=== PATIENT | female | born 1970 | race Caucasian/White ===

== ENCOUNTER 2019-06-06 20:20 | Inpatient (IN) | payer OTHER ==
--- NOTE | 2019-06-06 20:30 | PDOC ---
History of Present Illness - General Stated Complaint: LOW SATURATION Time Seen by Provider: 06/06/19 20:30 History Source: Patient Exam Limitations: No Limitations - History of Present Illness Initial Comments: 48 year old female with PMH HIV (not on HAARt, unknown viral load/CD4), COPD, asthma, heroine abuse BIBA to ED from [facility] for hypoxia. Pt was at [facility] for intake for Heroin/ETOH detox, SpO2 was 76%, EMS was called, EMS confirmed 76% SpO2, put on nonrebreather with improvement to 97%. Pt reported productive brown cough x2 days, pleuritic chest pain. Pt denied shortness of breath, weakness, palpitations, fever, vomiting, abdominal pain. Pt has not been compliant with HIV meds, only taking albuterol. Pt is not on home O2. Pt reported she went to Detox for treatment, and did not expect to be sent to the ED. 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 ROS General: denied fever, chills, generalized weakness. HEENT: denied sore throat, rhinorrhea, ear pain. Cardiovascular: denied chest pain, palpitations, syncope, diaphoresis. Respiratory: admitted to cough, sputum production. denied shortness of breath, hemoptysis. Gastrointestinal: denied abdominal pain, nausea, vomiting, diarrhea, constipation, blood in stool. Genitourinary: denied dysuria, increased urinary frequency, hematuria, urinary incontinence, flank pain. Back: denied back pain. Musculoskeletal: denied joint pain, muscle pain, joint swelling. Neurological: denied headache, dizziness, numbness, tingling, weakness. Integumentary: denied rash, laceration, abrasion. Hematologic/Lymphatic: denied bruising or bleeding. PE Constitutional: cachectic. ambulates well without assistance. HEENT: head is normocephalic, atraumatic. EOMI. PERRLA. dry mucous membranes. poor dentition. Neck: supple. Full ROM. Cardiovascular: regular heart rhythm. no murmurs. no pericardial friction rub. Respiratory: clear to auscultation bilaterally. no crackles, rhonchi or wheezing. no stridor. no CONTRERAS. no labored breathing. speaking full sentences. Gastrointestinal: soft, nontender. normal bowel sounds. no rebound, guarding, masses. Extremities: peripheral pulses intact. no lower extremity edema. Neurological: CN 2-12 grossly intact. moves all four extremities. Psych: awake, alert, oriented x3. follows commands. answers questions appropriately. Past History - Past Medical History Allergies/Adverse Reactions: Allergies Allergy/AdvReac Type Severity Reaction Status Date / Time No Known Allergies Allergy Verified 02/12/16 16:04 Home Medications: Ambulatory Orders Darunavir Ethanolate [Prezista -] 800 mg PO DAILY 02/12/16 Emtricitabine/Tenofovir [Truvada] 1 tab PO DAILY 02/12/16 Ritonavir [Norvir -] 100 mg PO DAILY 02/12/16 - Psycho Social/Smoking Cessation Hx Smoking History: Current every day smoker Have you smoked in the past 12 months: Yes Number of Cigarettes Smoked Daily: 40 Cigars Per Day: 0 'Breaking Loose' booklet given: 02/12/16 Hx Alcohol Use: No Drug/Substance Use Hx: Yes Substance Use Type: Heroin Hx Substance Use Treatment: Yes ([facility] IN 2013) ED Treatment Course - LABORATORY CBC & Chemistry Diagram: 06/06/19 21:30 06/06/19 21:30 Medical Decision Making - Medical Decision Making 48 year old female with above PMH sent to ED from [facility] Detox Intake for hypoxia 75%, was placed on nonrebreather by EMS with improvement to 97%. Pt reported 2 days of productive brown cough, pleuritic chest pain. Pt reported no shortness of breath, reported she feels well. She will intermittently remove the nonrebreather and continues to try to get out of bed and walk herself to the bathroom without her oxygen. Pt educated to keep the nonrebreather on. Initial Vital Signs Temp Pulse Resp BP Pulse Ox 98.8 F 102 H 24 H 91/48 L 78 L 06/06/19 21:55 06/06/19 21:55 06/06/19 21:55 06/06/19 21:55 06/06/19 21:55 Afebrile. Tachycardic. Tachypneic. Hypotensive. Hypoxia on room air. Labs ordered: CBC, CMP, Mag, Troponin, PT/PTT/INR, LDH, CD4, blood cultures, UA/ UC/UDS Imaging ordered: CTA chest Medications ordered: normal saline bolus 1000 cc once, tylenol IV EKG performed at 0032: rate 70, regular rhythm, normal axis, normal intervals, flipped T V2, biphasic T V3-V6. -No prior to compare 06/06/19 21:20 Urine Test Results Urine Color Dk yellow 06/06/19 20:55 Urine Appearance Cloudy 06/06/19 20:55 Urine pH 6.0 (5.0-8.0) 06/06/19 20:55 Ur Specific [place] 1.023 (1.010-1.035) 06/06/19 20:55 Urine Protein 1+ (NEGATIVE) H 06/06/19 20:55 Urine Glucose (UA) Negative (NEGATIVE) 06/06/19 20:55 Urine Ketones Trace (NEGATIVE) H 06/06/19 20:55 Urine Blood Negative (NEGATIVE) 06/06/19 20:55 Urine Nitrite Negative (NEGATIVE) 06/06/19 20:55 Urine Bilirubin Negative (NEGATIVE) 06/06/19 20:55 Ur Leukocyte Esterase Negative (NEGATIVE) 06/06/19 20:55 Negative for UTI. 06/06/19 22:53 CBC WBC 38.2 K/mm3 (4.0-10.0) H* 06/06/19 21:30 RBC 3.97 M/mm3 (3.60-5.2) 06/06/19 21:30 Hgb 10.8 GM/dL (10.7-15.3) 06/06/19 21:30 Hct 33.2 % (32.4-45.2) 06/06/19 21:30 MCV 83.8 fl (80-96) 06/06/19 21:30 MCH 27.1 pg (25.7-33.7) 06/06/19 21:30 MCHC 32.4 g/dl (32.0-36.0) 06/06/19 21:30 RDW 17.6 % (11.6-15.6) H 06/06/19 21:30 Plt Count 423 K/MM3 (134-434) D 06/06/19 21:30 MPV 9.5 fl (7.5-11.1) D 06/06/19 21:30 Absolute Neuts (auto) 35.8 K/mm3 (1.5-8.0) H 06/06/19 21:30 Neutrophils % 93.8 % (42.8-82.8) H 06/06/19 21:30 Neutrophils % (Manual) 76.0 % (42.8-82.8) 06/06/19 21:30 Band Neutrophils % 20.0 % 06/06/19 21:30 Lymphocytes % 1.3 % (8-40) L 06/06/19 21:30 Lymphocytes % (Manual) 3.0 % (8-40) L 06/06/19 21:30 Monocytes % 3.9 % (3.8-10.2) 06/06/19 21:30 Monocytes % (Manual) 1 % (3.8-10.2) L 06/06/19 21:30 Eosinophils % 1.0 % (0-4.5) 06/06/19 21:30 Eosinophils % (Manual) 0.0 % (0-4.5) 06/06/19 21:30 Basophils % 0.0 % (0-2.0) 06/06/19 21:30 Basophils % (Manual) 0.0 % (0-2.0) 06/06/19 21:30 Nucleated RBC % 0 % (0-0) 06/06/19 21:30 Hypochromia 1+ 06/06/19 21:30 Platelet Estimate Adequate 06/06/19 21:30 Target Cells 1+ 06/06/19 21:30 Ovalocytes Few 06/06/19 21:30 CMP Sodium 133 mmol/L (136-145) L 06/06/19 21:30 Potassium 5.0 mmol/L (3.5-5.1) 06/06/19 21:30 Chloride 92 mmol/L (98-107) L 06/06/19 21:30 Carbon Dioxide 33 mmol/L (21-32) H 06/06/19 21:30 Anion Gap 8 MMOL/L (8-16) 06/06/19 21:30 BUN 55.0 mg/dL (7-18) H 06/06/19 21:30 Creatinine 1.3 mg/dL (0.55-1.3) 06/06/19 21:30 Est GFR (CKD-EPI)AfAm 55.40 06/06/19 21:30 Est GFR (CKD-EPI)NonAf 47.80 06/06/19 21:30 Random Glucose 86 mg/dL (74-106) 06/06/19 21:30 Lactic Acid 1.7 mmol/L (0.4-2.0) 06/06/19 21:38 Calcium 9.2 mg/dL (8.5-10.1) 06/06/19 21:30 Phosphorus 3.4 mg/dL (2.5-4.9) 06/06/19 21:30 Magnesium 2.5 mg/dL (1.8-2.4) H 06/06/19 21:30 Total Bilirubin 0.3 mg/dL (0.2-1) 06/06/19 21:30 AST 58 U/L (15-37) H 06/06/19 21:30 ALT 24 U/L (13-61) 06/06/19 21:30 Alkaline Phosphatase 163 U/L (45-117) H 06/06/19 21:30 LD Total 348 U/L (84-246) H 06/06/19 21:30 Total Protein 7.9 g/dl (6.4-8.2) 06/06/19 21:30 Albumin 1.9 g/dl (3.4-5.0) L 06/06/19 21:30 Serum , Qual Negative 06/06/19 21:30 INR, PTT INR 1.28 (0.83-1.09) H 06/06/19 21:30 Severe leukocytosis. BUN/Cr >20 Elevated AST - consistent with ETOH abuse. Elevated LDH Pt is high risk for PCP pneumonia. Pharmacy called for dosing of Bactrim, recommended Bactrim IV 200 mg Q6-8 hours. Medications ordered: Bactrim IV 200 mg Q6-8 hours 06/07/19 00:32 CTA report: Referring Physician: PEG GRAY Patient Name: MERVIN ALEJANDRO THIS IS A PRELIMINARY REPORT FROM [facility] DATE OF SERVICE: 2019-06-06 23:33:38 IMAGES: [id number] EXAM: CHEST CTA HISTORY: Hypoxia COMPARISON: None. FINDINGS: There is no PE or dissection. The main pulmonary artery is dilated to 3.5 cm which does suggest pulmonary arterial hypertension. Heart size is normal. The trachea and bronchi are patent. There is no pleural or pericardial effusion. A dense right lower lobe consolidation indicates lobar pneumonia with a small consolidation in the right middle lobe. Mild emphysema is noted with biapical scarring. 11 mm spiculated nodule right lung apex is suspected to represent scarring, but suggest comparison to prior examinations to demonstrate stability. No fractures identified. Incompletely seen hypodensity adjacent to the falciform ligament could represent focal fatty infiltration of liver. The upper abdominal structures are normal. IMPRESSION: Right lower lobe lobar pneumonia with smaller consolidation in the right middle lobe. Mild emphysema with biapical scarring. 11 mm spiculated right nodule suspected to represent scar but suggest comparison to prior examinations. Possible fatty infiltration of the liver next to the falciform ligament, but consider further evaluation with nonemergent MRI. Suspected pulmonary arterial hypertension. One or more of the following dose reduction techniques were used: automated exposure control, adjustment of the mA and/or kV according to patient size, use of iterative reconstructive technique. THIS DOCUMENT HAS BEEN ELECTRONICALLY SIGNED Deshawn Calloway MD 06/07/19 01:39 Pt has hx of being immunocompromised with HAART medication noncompliance suffering from RLL/RML pneumonia resulting in hypoxia at rest, severe leukocytosis, and dehydration. Pt would benefit from inpatient antibiotics, ID consult, pulmonology consult, ICU consult, fluid hydration. Signout given to admitting team. Discharge - Discharge Information Problems reviewed: Yes Clinical Impression/Diagnosis: Pneumonia, HIV (human immunodeficiency virus infection), Noncompliance with medication regimen, Hypoxia, Leukocytosis Condition: Guarded - Admission Yes - Follow up/Referral - Patient Discharge Instructions - Post Discharge Activity
--- NOTE | 2019-06-06 20:37 | PDOC ---
Attending Attestation - Resident Resident Name: EmeliaSaeeda - ED Attending Attestation I have performed the following: I have examined & evaluated the patient, The case was reviewed & discussed with the resident, I agree w/resident's findings & plan - HPI HPI: 06/06/19 23:06 see resident hpi - Physicial Exam PE: 06/06/19 23:06 agree with resident exam - Medical Decision Making 06/06/19 23:06 48-year-old female with history of opiate dependence and retroviral positive status now with fever cough and shortness of breath as well as chest pain Labs notable for a significant leukocytosis LDH is elevated, CD4 count and viral load unknown Plan for CTA of the chest to rule out pulmonary embolism Bactrim IV for possible PCP Zosyn for community-acquired pneumonias Plan for admission to medical service for further evaluation
[2019-06-06] MEDS ORDERED: SODIUM CHLORIDE 1,000 ML IV STA ×2 (20:48→23:40)
[2019-06-06] MEDS ORDERED: ACETAMINOPHEN 1000 MG/100 ML VIAL (NON FORMULARY) IVPB ONE (20:48)
[2019-06-06 21:12] LABS: EPI CELLS 16.1 /HPF (0-5/HPF); HYALINE CASTS 75 /lpf (0-8); URINE APPEARANCE CLOUDY; URINE BACTERIA 44.9 /hpf (NEGATIVE); URINE BILIRUBIN NEGATIVE (NEGATIVE); URINE COLOR DK YELLOW; URINE GLUCOSE (UA) NEGATIVE (NEGATIVE); URINE KETONE TRACE (NEGATIVE); URINE LEUK ESTERASE NEGATIVE (NEGATIVE); URINE NITRITE NEGATIVE (NEGATIVE); URINE PROTEIN 1+ (NEGATIVE); URINE RBC 2 /hpf (0-4); URINE WBC 7 /hpf (0-5)
[2019-06-06 22:00] LABS: VENOUS PC02 67.6 mmHg (38-52); VENOUS PH 7.33 (7.31-7.41)
[2019-06-06 22:01] LABS: HEMATOCRIT 33.2 % (32.4-45.2); HEMOGLOBIN 10.8 GM/dL (10.7-15.3); LYMPH % 1.3 % (8-40); MCH 27.1 pg (25.7-33.7); MCHC 32.4 g/dl (32.0-36.0); MEAN CELL VOLUME 83.8 fl (80-96); MEAN PLT VOLUME 9.5 fl (7.5-11.1); MONO % 3.9 % (3.8-10.2); NEUT % 93.8 % (42.8-82.8); PLATELET COUNT 423 K/MM3 (134-434); RBC 3.97 M/mm3 (3.60-5.2); RDW 17.6 % (11.6-15.6)
[2019-06-06] MEDS ORDERED: ACETAMINOPHEN INJECTION 100 ML IVPB ONE (22:02)
[2019-06-06 22:03] LABS: VENOUS PO2 < 49 mmHg (28-48)
[2019-06-06 22:07] LABS: WHITE BLOOD COUNT 38.2 K/mm3 (4.0-10.0)
[2019-06-06 22:14] LABS: INR 1.28 (0.83-1.09); PROTHROMBIN TIME (PATIENT) 15.2 SEC (9.7-13.0)
[2019-06-06 22:29] LABS: OVALOCYTE FEW; PLATELET ESTIMATE ADEQUATE; TARGET CELLS 1+
[2019-06-06 22:40] LABS: ALBUMIN 1.9 g/dl (3.4-5.0); BILIRUBIN,TOTAL 0.3 mg/dL (0.2-1); CALCIUM 9.2 mg/dL (8.5-10.1); CREATININE 1.3 mg/dL (0.55-1.3); TOT PROT 7.9 g/dl (6.4-8.2)
[2019-06-06 22:51] LABS: MAGNESIUM 2.5 mg/dL (1.8-2.4); PHOSPHOROUS 3.4 mg/dL (2.5-4.9)
[2019-06-06] MEDS ORDERED: SULFAMETHOXAZOLE 80 MG/TRIMETHOPRIM 16 MG/ML VIAL IVPB ONE (23:24)
[2019-06-06] MEDS ORDERED: PIPERACILLIN/TAZOB 4.5 GM 4.5 GM in DEXTROSE 5%-WATER 100 ML IVPB ONE (23:24)
[2019-06-07] MEDS ORDERED: PIPERACILLIN/TAZOB 4.5 GM 4.5 GM/100 ML BAG IVPB ONE (00:41)
[2019-06-07 01:06] LABS: ARTERIAL BLD GAS O2 SATURATION 96.9 % (95-98); ARTERIAL BLOOD GAS BASE EXCESS 4.8 meq/l (-2-2); ARTERIAL BLOOD GAS PCO2 51.9 mmHg (35-45); ARTERIAL BLOOD GAS PO2 99.5 mmHg (80-100); ARTERIAL BLOOD GAS pH 7.38 (7.35-7.45); CARBOXYHEMOGLOBIN 1.5 % (0-2)
[2019-06-07 01:18] LABS: ALLENS TEST POSITIVE
--- NOTE | 2019-06-07 02:14 | PN ---
Teaching Attending Note Name of Resident: Martinez Ignacio ATTENDING PHYSICIAN STATEMENT I saw and evaluated the patient. I reviewed the resident's note and discussed the case with the resident. I agree with the resident's findings and plan as documented. SUBJECTIVE: 48-year-old woman with HIV/AIDS unknown CD4 count or viral load presented with complaints of cough and shortness of breath as well as chest pain. Patient was sent to hospital from [facility]. Patient herself is a very unreliable historian and offers very limited history and is believed to have poor insight about her medical condition. She does however recall that her last ART regimen was Truvada , Prezista, Norvir. States that she has been off her medications for about 1 year because she got tired of taking them OBJECTIVE: Last Vital Signs Temp Pulse Resp BP Pulse Ox 98.8 F 61 20 80/47 L 100 06/06/19 21:55 06/07/19 01:19 06/07/19 01:19 06/07/19 01:19 06/07/19 01:19 GENERAL: Cachectic, awake and alert, nontoxic appearing HEENT: Negative for any oral thrush, no lymphadenopathy appreciated, no sinus tenderness NECK: Supple. Full ROM. No JVD. Carotid pulses 2+ and symmetric, without bruits. No thyromegaly. No lymphadenopathy. CARDIOVASCULAR: Regular rate and rhythm. No murmurs, rubs, or gallops. Distal pulses are 2+ and symmetric. PULMONARY: No evidence of respiratory distress. Lungs clear to auscultation bilaterally. No wheezing, rales or rhonchi. ABDOMINAL: Soft. Non-tender. Non-distended. No rebound or guarding. No organomegaly. Normoactive bowel sounds. MUSCULOSKELETAL Normal range of motion at all joints. No bony deformities or tenderness. No CVA tenderness. EXTREMITIES: No cyanosis. No clubbing. No edema. No calf tenderness. SKIN: Warm and dry. Normal capillary refill. No rashes. No jaundice. PSYCHIATRIC: Cooperative. Good eye contact. Appropriate mood and affect. Abnormal Lab Results 06/06/19 06/06/19 06/06/19 20:55 21:30 21:30 WBC 38.2 H* RDW 17.6 H Absolute Neuts (auto) 35.8 H Neutrophils % 93.8 H Lymphocytes % 1.3 L Lymphocytes % (Manual) 3.0 L Monocytes % (Manual) 1 L PT with INR 15.20 H INR 1.28 H ABG pCO2 at Pt Temp ABG HCO3 ABG Base Excess POC VBG pCO2 POC VBG pO2 VBG HCO3 VBG O2 Sat ([place]) VBG Base Excess Sodium Chloride Carbon Dioxide BUN Magnesium AST Alkaline Phosphatase LD Total Albumin Urine Protein 1+ H Urine Ketones Trace H 06/06/19 06/06/19 06/06/19 21:30 21:30 21:30 WBC RDW Absolute Neuts (auto) Neutrophils % Lymphocytes % Lymphocytes % (Manual) Monocytes % (Manual) PT with INR INR ABG pCO2 at Pt Temp ABG HCO3 ABG Base Excess POC VBG pCO2 67.6 H POC VBG pO2 < 49 H VBG HCO3 35.0 H VBG O2 Sat ([place]) 39.6 L VBG Base Excess 7.6 H Sodium 133 L Chloride 92 L Carbon Dioxide 33 H BUN 55.0 H Magnesium 2.5 H AST 58 H Alkaline Phosphatase 163 H LD Total 348 H Albumin 1.9 L Urine Protein Urine Ketones 06/07/19 00:54 WBC RDW Absolute Neuts (auto) Neutrophils % Lymphocytes % Lymphocytes % (Manual) Monocytes % (Manual) PT with INR INR ABG pCO2 at Pt Temp 51.9 H ABG HCO3 30.1 H ABG Base Excess 4.8 H POC VBG pCO2 POC VBG pO2 VBG HCO3 VBG O2 Sat ([place]) VBG Base Excess Sodium Chloride Carbon Dioxide BUN Magnesium AST Alkaline Phosphatase LD Total Albumin Urine Protein Urine Ketones Imaging studies reviewed ASSESSMENT AND PLAN: 48-year-old woman with HIV/AIDS, immunocompromised with severe sepsis secondary to multifocal Community acquired pneumonia. Hypoxic respiratory failure, severe leukocytosis, should rule out PJP pneumonia as patient was found to be severely hypoxic Telemetry Consider ICU admission as patient is high risk for decompensation Zosyn, vancomycin, azithromycin for suspected bacterial pneumonia Sputum culture Urine Legionella antigen Blood cultures x2 Trend lactate as patient is becoming hypotensive IV Bactrim every 8 hours pending P NATALIO rule out Fungitell Sputum for P NATALIO DFA Pulmonary consult for possible BAL LDH ABG and calculate AA gradient Pulmonary and infectious disease evaluation HIV viral load and CD4 count Obtain patient's medical records from old HIV physician #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
[2019-06-07] MEDS ORDERED: SULFAMETHOXAZOLE IVPB ONE (02:30)
[2019-06-07] MEDS ORDERED: TRIMETHOPRIM IVPB ONE (02:30)
[2019-06-07] MEDS ORDERED: WATER IVPB ONE (02:30)
[2019-06-07] MEDS ORDERED: SODIUM CHLORIDE 1,000 ML IV SCH ×2 (02:30→08:24)
[2019-06-07] MEDS ORDERED: DEXTROSE 5% IVPB ONE (02:30)
--- NOTE | 2019-06-07 03:12 | HP ---
CHIEF COMPLAINT: Cough PCP: Dr. Pitts ([facility]) HISTORY OF PRESENT ILLNESS: 48 y/o female w PMH HIV (not on HAART), COPD, asthma, and heroin abuse c/o cough for 1 week. The cough is associated with production of streaks of brown/ blood in her tissue. Pt sent from [facility] s/p desaturating. She entered [facility] for heroin detox; last use, "1 bag" snorted yesterday AM (06/06/19). She was placed on a non-rebreather mask, currently on non-rebreather mask and her O2 raised to 98%. She reports chest pain worsened with cough. Pt denies shortness of breath while in the ED. Pt non-compliant with HIV medication. She reports not taking meds for approximately 1 year. She is unaware of her CD4 count. ER course was notable for: (1) Leukocytosis 38.2 (2) BP 89/46 (3) EKG: rate 70, regular rhythm, normal axis, normal intervals, flipped T V2, biphasic T V3-V6 (4) Administered normal saline bolus 1000 cc once and IV tylenol (5) CTA chest: A dense right lower lobe consolidation indicates lobar pneumonia with a small consolidation in the right middle lobe. Mild emphysema is noted with biapical scarring. 11 mm spiculated nodule right lung apex is suspected to represent scarring. Recent Travel: Denies PAST MEDICAL HISTORY: HIV (not on HAART), COPD, asthma, and heroin abuse PAST SURGICAL HISTORY: Denies Social History: Smoking: Active 1 ppd smoker since 1986 Alcohol: Former social etoh Drugs: Actively snorts heroin Allergies: No Known Allergies Allergy (Verified 02/12/16 16:04) HOME MEDICATIONS: Home Medications Medication Instructions Recorded Darunavir Ethanolate [Prezista -] 800 mg PO DAILY 02/12/16 Emtricitabine/Tenofovir [Truvada] 1 tab PO DAILY 02/12/16 Ritonavir [Norvir -] 100 mg PO DAILY 02/12/16 REVIEW OF SYSTEMS CONSTITUTIONAL: Absent: fever, chills, diaphoresis, generalized weakness, malaise, loss of appetite, weight change HEENT: Absent: rhinorrhea, nasal congestion, throat pain, throat swelling, difficulty swallowing, mouth swelling, ear pain, eye pain, visual changes CARDIOVASCULAR: Absent: chest pain, syncope, palpitations, irregular heart rate, lightheadedness , peripheral edema RESPIRATORY: Absent: cough, shortness of breath, dyspnea with exertion, orthopnea, wheezing, stridor, hemoptysis GASTROINTESTINAL: Absent: abdominal pain, abdominal distension, nausea, vomiting, diarrhea, constipation, melena, hematochezia GENITOURINARY: Absent: dysuria, frequency, urgency, hesitancy, hematuria, flank pain, genital pain MUSCULOSKELETAL: Absent: myalgia, arthralgia, joint swelling, back pain, neck pain SKIN: Absent: rash, itching, pallor HEMATOLOGIC/IMMUNOLOGIC: Absent: easy bleeding, easy bruising, lymphadenopathy, frequent infections ENDOCRINE: Absent: unexplained weight gain, unexplained weight loss, heat intolerance, cold intolerance NEUROLOGIC: Absent: headache, focal weakness or paresthesias, dizziness, unsteady gait, seizure, mental status changes, bladder or bowel incontinence PSYCHIATRIC: Absent: anxiety, depression, suicidal or homicidal ideation, hallucinations. PHYSICAL EXAMINATION Vital Signs - 24 hr 06/06/19 06/07/19 21:55 01:19 Temperature 98.8 F Pulse Rate 102 H Pulse Rate [ 61 Right Radial] Respiratory 24 H 20 Rate Blood Pressure 91/48 L Blood Pressure 80/47 L [Right Arm] O2 Sat by Pulse 78 L 100 Oximetry (%) GENERAL: AOx3, in no acute distress, wearing venti mask at 7 L. Cachectic. HEAD: NCAT, missing many teeth, no oral candiasis appreciated EYES: Pupils 2mm BL, sluggish reaction to light and accomadation, EOMI, conjunctiva clear. ENT: Ears normal, nares patent, oropharynx clear without exudates. Moist mucous membranes. NECK: Normal range of motion, supple without lymphadenopathy, JVD, or masses. LUNGS: Wheezes present BL and in all lung fieds. POSITIVE tactile fremitus in RLL. No accessory muscle use. HEART: RRR s1 s2 ABDOMEN: Soft, BS present in all 4 quadrants, non-distended, no JVD, MUSCULOSKELETAL: No bony deformities or tenderness. No CVA tenderness. UPPER EXTREMITIES: 2+ pulses, warm, well-perfused. No cyanosis. No clubbing. No peripheral edema. LOWER EXTREMITIES: 2+ pulses, warm, well-perfused. No calf tenderness. No peripheral edema. NEUROLOGICAL: Cranial nerves II-XII intact. Speech garbled 2/2 lack of teeth. Gait stable with adequate strike and swing. PSYCHIATRIC: Cooperative. Good eye contact. Appropriate mood and affect. SKIN: Warm, dry, loose turgor, no rashes or lesions noted, normal capillary refill. Laboratory Results - last 24 hr 06/06/19 06/06/19 06/06/19 20:55 20:55 21:30 WBC RBC Hgb Hct MCV MCH MCHC RDW Plt Count MPV Absolute Neuts (auto) Neutrophils % Neutrophils % (Manual) Band Neutrophils % Lymphocytes % Lymphocytes % (Manual) Monocytes % Monocytes % (Manual) Eosinophils % Eosinophils % (Manual) Basophils % Basophils % (Manual) Nucleated RBC % Hypochromia Platelet Estimate Target Cells Ovalocytes PT with INR INR PTT (Actin FS) 27.4 Anticoagulation Therapy Puncture Site ABG pH ABG pCO2 at Pt Temp ABG pO2 at Pt Temp ABG HCO3 ABG O2 Sat (Measured) ABG O2 Content ABG Base Excess [place] Test VBG pH POC VBG pCO2 POC VBG pO2 VBG HCO3 VBG O2 Sat (Navid) VBG Base Excess Carboxyhemoglobin Methemoglobin O2 Delivery Device Oxygen Flow Rate Vent Mode Vent Rate Mechanical Rate Pressure Support Vent Sodium Potassium Chloride Carbon Dioxide Anion Gap BUN Creatinine Est GFR (CKD-EPI)AfAm Est GFR (CKD-EPI)NonAf Random Glucose Lactic Acid Calcium Phosphorus Magnesium Total Bilirubin AST ALT Alkaline Phosphatase LD Total Troponin I Total Protein Albumin Serum , Qual Urine Color Dk yellow Urine Appearance Cloudy Urine pH 6.0 Ur Specific [place] 1.023 Urine Protein 1+ H Urine Glucose (UA) Negative Urine Ketones Trace H Urine Blood Negative Urine Nitrite Negative Urine Bilirubin Negative Urine Urobilinogen 1.0 Ur Leukocyte Esterase Negative Urine WBC (Auto) 7 Urine RBC (Auto) 2 Urine Casts (Auto) 75 U Pathogenic Cast Auto none seen U Epithel Cells (Auto) 16.1 U Sm Round Cell (Auto) none seen Urine Bacteria (Auto) 44.9 Opiates Screen Cancelled Methadone Screen Cancelled Barbiturate Screen Cancelled Phencyclidine Screen Cancelled Ur Amphetamines Screen Cancelled MDMA (Ecstasy) Screen Cancelled Benzodiazepines Screen Cancelled Cocaine Screen Cancelled U Marijuana (THC) Screen Cancelled Alcohol, Quantitative 06/06/19 06/06/19 06/06/19 21:30 21:30 21:30 WBC 38.2 H* RBC 3.97 Hgb 10.8 Hct 33.2 MCV 83.8 MCH 27.1 MCHC 32.4 RDW 17.6 H Plt Count 423 D MPV 9.5 D Absolute Neuts (auto) 35.8 H Neutrophils % 93.8 H Neutrophils % (Manual) 76.0 Band Neutrophils % 20.0 Lymphocytes % 1.3 L Lymphocytes % (Manual) 3.0 L Monocytes % 3.9 Monocytes % (Manual) 1 L Eosinophils % 1.0 Eosinophils % (Manual) 0.0 Basophils % 0.0 Basophils % (Manual) 0.0 Nucleated RBC % 0 Hypochromia 1+ Platelet Estimate Adequate Target Cells 1+ Ovalocytes Few PT with INR INR PTT (Actin FS) Anticoagulation Therapy Puncture Site ABG pH ABG pCO2 at Pt Temp ABG pO2 at Pt Temp ABG HCO3 ABG O2 Sat (Measured) ABG O2 Content ABG Base Excess [place] Test VBG pH POC VBG pCO2 POC VBG pO2 VBG HCO3 VBG O2 Sat (Navid) VBG Base Excess Carboxyhemoglobin Methemoglobin O2 Delivery Device Oxygen Flow Rate Vent Mode Vent Rate Mechanical Rate Pressure Support Vent Sodium Cancelled Potassium Cancelled Chloride Cancelled Carbon Dioxide Cancelled Anion Gap Cancelled BUN Cancelled Creatinine Cancelled Est GFR (CKD-EPI)AfAm Cancelled Est GFR (CKD-EPI)NonAf Cancelled Random Glucose Cancelled Lactic Acid Calcium Cancelled Phosphorus Magnesium Cancelled Total Bilirubin Cancelled AST Cancelled ALT Cancelled Alkaline Phosphatase Cancelled LD Total Troponin I Total Protein Cancelled Albumin Cancelled Serum , Qual Urine Color Urine Appearance Urine pH Ur Specific [place] Urine Protein Urine Glucose (UA) Urine Ketones Urine Blood Urine Nitrite Urine Bilirubin Urine Urobilinogen Ur Leukocyte Esterase Urine WBC (Auto) Urine RBC (Auto) Urine Casts (Auto) U Pathogenic Cast Auto U Epithel Cells (Auto) U Sm Round Cell (Auto) Urine Bacteria (Auto) Opiates Screen Methadone Screen Barbiturate Screen Phencyclidine Screen Ur Amphetamines Screen MDMA (Ecstasy) Screen Benzodiazepines Screen Cocaine Screen U Marijuana (THC) Screen Alcohol, Quantitative 06/06/19 06/06/19 06/06/19 21:30 21:30 21:30 WBC RBC Hgb Hct MCV MCH MCHC RDW Plt Count MPV Absolute Neuts (auto) Neutrophils % Neutrophils % (Manual) Band Neutrophils % Lymphocytes % Lymphocytes % (Manual) Monocytes % Monocytes % (Manual) Eosinophils % Eosinophils % (Manual) Basophils % Basophils % (Manual) Nucleated RBC % Hypochromia Platelet Estimate Target Cells Ovalocytes PT with INR 15.20 H INR 1.28 H PTT (Actin FS) Anticoagulation Therapy Puncture Site ABG pH ABG pCO2 at Pt Temp ABG pO2 at Pt Temp ABG HCO3 ABG O2 Sat (Measured) ABG O2 Content ABG Base Excess [place] Test VBG pH POC VBG pCO2 POC VBG pO2 VBG HCO3 VBG O2 Sat (Navid) VBG Base Excess Carboxyhemoglobin Methemoglobin O2 Delivery Device Oxygen Flow Rate Vent Mode Vent Rate Mechanical Rate Pressure Support Vent Sodium Potassium Chloride Carbon Dioxide Anion Gap BUN Creatinine Est GFR (CKD-EPI)AfAm Est GFR (CKD-EPI)NonAf Random Glucose Lactic Acid Calcium Phosphorus Cancelled Magnesium Total Bilirubin AST ALT Alkaline Phosphatase LD Total Troponin I Total Protein Albumin Serum , Qual Negative Urine Color Urine Appearance Urine pH Ur Specific [place] Urine Protein Urine Glucose (UA) Urine Ketones Urine Blood Urine Nitrite Urine Bilirubin Urine Urobilinogen Ur Leukocyte Esterase Urine WBC (Auto) Urine RBC (Auto) Urine Casts (Auto) U Pathogenic Cast Auto U Epithel Cells (Auto) U Sm Round Cell (Auto) Urine Bacteria (Auto) Opiates Screen Methadone Screen Barbiturate Screen Phencyclidine Screen Ur Amphetamines Screen MDMA (Ecstasy) Screen Benzodiazepines Screen Cocaine Screen U Marijuana (THC) Screen Alcohol, Quantitative Cancelled 06/06/19 06/06/19 06/06/19 21:30 21:30 21:30 WBC RBC Hgb Hct MCV MCH MCHC RDW Plt Count MPV Absolute Neuts (auto) Neutrophils % Neutrophils % (Manual) Band Neutrophils % Lymphocytes % Lymphocytes % (Manual) Monocytes % Monocytes % (Manual) Eosinophils % Eosinophils % (Manual) Basophils % Basophils % (Manual) Nucleated RBC % Hypochromia Platelet Estimate Target Cells Ovalocytes PT with INR INR PTT (Actin FS) Anticoagulation Therapy Puncture Site ABG pH ABG pCO2 at Pt Temp ABG pO2 at Pt Temp ABG HCO3 ABG O2 Sat (Measured) ABG O2 Content ABG Base Excess Francisco Test VBG pH 7.33 POC VBG pCO2 67.6 H POC VBG pO2 < 49 H VBG HCO3 35.0 H VBG O2 Sat (Navid) 39.6 L VBG Base Excess 7.6 H Carboxyhemoglobin Methemoglobin O2 Delivery Device Oxygen Flow Rate Vent Mode Vent Rate Mechanical Rate Pressure Support Vent Sodium 133 L Potassium 5.0 Chloride 92 L Carbon Dioxide 33 H Anion Gap 8 BUN 55.0 H Creatinine 1.3 Est GFR (CKD-EPI)AfAm 55.40 Est GFR (CKD-EPI)NonAf 47.80 Random Glucose 86 Lactic Acid Calcium 9.2 Phosphorus 3.4 Magnesium 2.5 H Total Bilirubin 0.3 AST 58 H ALT 24 Alkaline Phosphatase 163 H LD Total 348 H Troponin I < 0.02 Total Protein 7.9 Albumin 1.9 L Serum , Qual Urine Color Urine Appearance Urine pH Ur Specific [place] Urine Protein Urine Glucose (UA) Urine Ketones Urine Blood Urine Nitrite Urine Bilirubin Urine Urobilinogen Ur Leukocyte Esterase Urine WBC (Auto) Urine RBC (Auto) Urine Casts (Auto) U Pathogenic Cast Auto U Epithel Cells (Auto) U Sm Round Cell (Auto) Urine Bacteria (Auto) Opiates Screen Methadone Screen Barbiturate Screen Phencyclidine Screen Ur Amphetamines Screen MDMA (Ecstasy) Screen Benzodiazepines Screen Cocaine Screen U Marijuana (THC) Screen Alcohol, Quantitative < 3.0 06/06/19 06/07/19 21:38 00:54 WBC RBC Hgb Hct MCV MCH MCHC RDW Plt Count MPV Absolute Neuts (auto) Neutrophils % Neutrophils % (Manual) Band Neutrophils % Lymphocytes % Lymphocytes % (Manual) Monocytes % Monocytes % (Manual) Eosinophils % Eosinophils % (Manual) Basophils % Basophils % (Manual) Nucleated RBC % Hypochromia Platelet Estimate Target Cells Ovalocytes PT with INR INR PTT (Actin FS) Anticoagulation Therapy No Result Required. Puncture Site No Result Required. ABG pH 7.38 ABG pCO2 at Pt Temp 51.9 H ABG pO2 at Pt Temp 99.5 ABG HCO3 30.1 H ABG O2 Sat (Measured) 96.9 ABG O2 Content 12.1 ABG Base Excess 4.8 H [place] Test Positive VBG pH POC VBG pCO2 POC VBG pO2 VBG HCO3 VBG O2 Sat (Navid) VBG Base Excess Carboxyhemoglobin 1.5 Methemoglobin < 1.0 O2 Delivery Device No Result Required. Oxygen Flow Rate No Result Required. Vent Mode No Result Required. Vent Rate No Result Required. Mechanical Rate No Result Required. Pressure Support Vent No Result Required. Sodium Potassium Chloride Carbon Dioxide Anion Gap BUN Creatinine Est GFR (CKD-EPI)AfAm Est GFR (CKD-EPI)NonAf Random Glucose Lactic Acid 1.7 Calcium Phosphorus Magnesium Total Bilirubin AST ALT Alkaline Phosphatase LD Total Troponin I Total Protein Albumin Serum , Qual Urine Color Urine Appearance Urine pH Ur Specific [place] Urine Protein Urine Glucose (UA) Urine Ketones Urine Blood Urine Nitrite Urine Bilirubin Urine Urobilinogen Ur Leukocyte Esterase Urine WBC (Auto) Urine RBC (Auto) Urine Casts (Auto) U Pathogenic Cast Auto U Epithel Cells (Auto) U Sm Round Cell (Auto) Urine Bacteria (Auto) Opiates Screen Methadone Screen Barbiturate Screen Phencyclidine Screen Ur Amphetamines Screen MDMA (Ecstasy) Screen Benzodiazepines Screen Cocaine Screen U Marijuana (THC) Screen Alcohol, Quantitative ASSESSMENT/PLAN: 48 y/o female w PMH HIV (not on HAART), COPD, asthma, and heroin abuse c/o cough for [address] finding in RLL now presenting with sepsis. # Severe sepsis 2/2 PNA - Severe leukocytosis, hypotension responsive to fluids - Trend lactate - Sputum culture PJP and BAL - Fungitell - LDH - Tx emperically for vanc, zossyn, bactrim, azithro - Cont. non-rebreather mask to keep o2 sat above 90% - Consult ID - Consult ICU - PT - Urine legionella # Acute respiratory failure 2/2 PNA - Blood culture, sputum, urine cx pending - Tx emperically for vanc, zossyn, bactrim, azithro - ABG pending - Supplemental O2 to maintain o2 above 90% - Albuterol PRN # HIV/AIDS - Viral load - CD4 - Empiric bactrim 15 mg/kg - Begin HAART: 2 NRTI and an NNRTI/PI - Consult ID - Consult Pulmonology - Dietary eval #F/E/N - NS - Cont. to monitor - Regular diet # DVT prophylaxis - Heparin SQ # Disposition - Admit to ICU Martinez Ignacio MD Visit type - Emergency Visit Emergency Visit: Yes ED Registration Date: 06/07/19 Care time: The patient presented to the Emergency Department on the above date and was hospitalized for further evaluation of their emergent condition. - New Patient This patient is new to me today: Yes Date on this admission: 06/07/19 - Critical Care Critical Care patient: Yes Total Critical Care Time (in minutes): 40 Critical Care Statement: The care of this patient involved high complexity decision making to prevent further life threatening deterioration of the patient 's condition and/or to evaluate & treat vital organ system(s) failure or risk of failure. ATTENDING PHYSICIAN STATEMENT I saw and evaluated the patient. I reviewed the resident's note and discussed the case with the resident. I agree with the resident's findings and plan as documented. SUBJECTIVE: OBJECTIVE: ASSESSMENT AND PLAN:
[2019-06-07 06:12] LABS: ARTERIAL BLD GAS O2 SATURATION 96.4 % (95-98); ARTERIAL BLOOD GAS BASE EXCESS 3.7 meq/l (-2-2); ARTERIAL BLOOD GAS PCO2 60.1 mmHg (35-45); ARTERIAL BLOOD GAS pH 7.32 (7.35-7.45)
[2019-06-07 06:20] LABS: ALLENS TEST POSITIVE; ARTERIAL BLOOD GAS PO2 105 mmHg (80-100)
[2019-06-07] MEDS ORDERED: ALBUTEROL SO4 0.083% IH SOL 2.5 MG/3 ML VIAL.NEB. NEB PRN (06:20)
[2019-06-07] MEDS ORDERED: SODIUM CHLORIDE 1,000 ML IV STA ×2 (08:49→09:00)
[2019-06-07] MEDS ORDERED: AZITHROMYCIN IVPB 500 MG/250 ML BAG IVPB SCH (10:00)
[2019-06-07] MEDS ORDERED: TRIMETHOPRIM IVPB SCH (10:00)
[2019-06-07] MEDS ORDERED: SULFAMETHOXAZOLE 80 MG/TRIMETHOPRIM 16 MG/ML VIAL IVPB SCH (10:00)
[2019-06-07] MEDS ORDERED: PIPERACILLIN/TAZOB 3.375 GM 3.375 GM in DEXTROSE 5%-WATER - 50 ML IVPB SCH (10:00)
[2019-06-07] MEDS ORDERED: SULFAMETHOXAZOLE IVPB SCH (10:00)
[2019-06-07] MEDS ORDERED: WATER IVPB SCH (10:00)
[2019-06-07] MEDS ORDERED: VANCOMYCIN 1 GRAM (PRE-DOCKED) 1,000 MG/250 ML BAG IVPB ONE (10:00)
[2019-06-07] MEDS ORDERED: HEPARIN NA (PORCINE) 5,000 UNITS/ML 1ML VIAL SQ SCH (10:00)
[2019-06-07] MEDS ORDERED: DEXTROSE 5% IVPB SCH (10:00)
[2019-06-07] MEDS ORDERED: VANCOMYCIN 1 GM in D5W (PRE-DOCKED) 1,000 MG/250 ML IVPB SCH (10:00)
--- NOTE | 2019-06-07 10:35 | EKG ---
Test Reason : Blood Pressure : / mmHG Vent. Rate : 072 BPM Atrial Rate : 072 BPM P-R Int : 132 ms QRS Dur : 090 ms QT Int : 528 ms P-R-T Axes : 077 089 102 degrees QTc Int : 578 ms NORMAL SINUS RHYTHM POSSIBLE LEFT ATRIAL ENLARGEMENT T WAVE ABNORMALITY, CONSIDER ANTEROLATERAL ISCHEMIA PROLONGED QT ABNORMAL ECG Confirmed by MD JIMI, EZE ([id number]) on 06/07/2019 10:35:42 AM Referred By: Confirmed By:EZE KRAUSE MD
[2019-06-07 11:43] LABS: BASO % 0.3 % (0-2.0); EOS % 0.7 % (0-4.5); HEMATOCRIT 27.1 % (32.4-45.2); HEMOGLOBIN 8.7 GM/dL (10.7-15.3); MCH 26.7 pg (25.7-33.7); MCHC 32.2 g/dl (32.0-36.0); MEAN CELL VOLUME 83.1 fl (80-96); MONO % 15.4 % (3.8-10.2); NEUT % 82.6 % (42.8-82.8); PLATELET COUNT 353 K/MM3 (134-434); RBC 3.26 M/mm3 (3.60-5.2); RDW 18.2 % (11.6-15.6); WHITE BLOOD COUNT 26.6 K/mm3 (4.0-10.0)
[2019-06-07] MEDS ORDERED: ALBUTEROL SO4 2.5/IPRATROPIUM 0.5 INH SOL 3 ML VIAL.NEB. NEB PRN (12:04)
--- NOTE | 2019-06-07 12:05 | CONSULT ---
Consultation: CONSULT REQUEST: ICU CONSULT HISTORY OF PRESENT ILLNESS: 48 y/o female w PMH HIV (not on HAART), COPD, asthma, and heroin abuse was sent from [facility] after patient desaturated. Patient complains of worsening SOB and cough for 1 week. Last heroin use was yesterday morning via inhalation. Patient was placed on a 100% NRB and was eventually weaned down to nasal cannula. Patient is non-compliant with her HIV medications. Her last CD4 count is unknown. In the ER patient was found with a wbc of 32. CTA chest: A dense right lower lobe consolidation indicates lobar pneumonia with a small consolidation in the right middle lobe. She was also found hypotensive in the 70's/40's. Patient was then given IV abx and fluids. Patient currently has no complaints. She denies SOB, chest pain, nausea, vomiting, fevers, chills, dizziness, fevers, chills. REVIEW OF SYSTEMS: per HPI PHYSICAL EXAMINATION Vital Signs - 24 hr 06/06/19 06/06/19 06/07/19 21:55 23:00 01:19 Temperature 98.8 F Pulse Rate 102 H Pulse Rate [ 61 Right Radial] Respiratory 24 H 20 Rate Blood Pressure 91/48 L Blood Pressure 80/47 L [Right Arm] O2 Sat by Pulse 78 L 100 100 Oximetry (%) 06/07/19 06/07/19 06/07/19 03:25 03:42 06:30 Temperature 99.3 F Pulse Rate Pulse Rate [ 62 94 H 102 H Right Radial] Respiratory 18 20 20 Rate Blood Pressure Blood Pressure 81/46 L 86/42 L 90/62 [Right Arm] O2 Sat by Pulse 100 100 100 Oximetry (%) 06/07/19 06/07/19 06/07/19 08:40 08:50 09:00 Temperature Pulse Rate 71 71 71 Pulse Rate [ Right Radial] Respiratory 20 20 20 Rate Blood Pressure 78/48 L 70/42 L 80/54 L Blood Pressure [Right Arm] O2 Sat by Pulse Oximetry (%) 06/07/19 06/07/19 06/07/19 09:05 10:15 10:57 Temperature 97.8 F Pulse Rate 69 82 69 Pulse Rate [ Right Radial] Respiratory 20 18 16 Rate Blood Pressure 79/51 L 84/56 L 81/43 L Blood Pressure [Right Arm] O2 Sat by Pulse Oximetry (%) GENERAL: Awake, alert, and fully oriented, in no acute distress. HEAD: Normal with no signs of trauma. EYES: Pupils equal, round and reactive to light, extraocular movements intact, sclera anicteric, conjunctiva clear. No lid lag. EARS, NOSE, THROAT: Ears normal, nares patent, oropharynx clear without exudates. Moist mucous membranes. NECK: Normal range of motion, supple without lymphadenopathy, JVD, or masses. LUNGS: Breath sounds equal, clear to auscultation bilaterally. No wheezes, and no crackles. No accessory muscle use. HEART: Regular rate and rhythm, normal S1 and S2 without murmur, rub or gallop. ABDOMEN: Soft, nontender, not distended, normoactive bowel sounds, no guarding, no rebound, no masses. No hepatomegaly or splenomegaly. MUSCULOSKELETAL: Normal range of motion at all joints. No bony deformities or tenderness. No CVA tenderness. UPPER EXTREMITIES: 2+ pulses, warm, well-perfused. No cyanosis. No clubbing. Cap refill <2 seconds. No peripheral edema. LOWER EXTREMITIES: 2+ pulses, warm, well-perfused. No calf tenderness. No peripheral edema. NEUROLOGICAL: Cranial nerves II-XII intact. Normal speech. Normal gait. PSYCHIATRIC: Cooperative. Good eye contact. Appropriate mood and affect. SKIN: Warm, dry, normal turgor, no rashes or lesions noted. Laboratory Results - last 24 hr 06/06/19 06/06/19 06/06/19 20:55 20:55 21:30 WBC RBC Hgb Hct MCV MCH MCHC RDW Plt Count MPV Absolute Neuts (auto) Neutrophils % Neutrophils % (Manual) Band Neutrophils % Lymphocytes % Lymphocytes % (Manual) Monocytes % Monocytes % (Manual) Eosinophils % Eosinophils % (Manual) Basophils % Basophils % (Manual) Nucleated RBC % Hypochromia Platelet Estimate Target Cells Ovalocytes PT with INR INR PTT (Actin FS) 27.4 Anticoagulation Therapy Puncture Site ABG pH ABG pCO2 at Pt Temp ABG pO2 at Pt Temp ABG HCO3 ABG O2 Sat (Measured) ABG O2 Content ABG Base Excess Francisco Test VBG pH POC VBG pCO2 POC VBG pO2 VBG HCO3 VBG O2 Sat (Navid) VBG Base Excess Carboxyhemoglobin Methemoglobin O2 Delivery Device Oxygen Flow Rate Vent Mode Vent Rate Mechanical Rate Pressure Support Vent Sodium Potassium Chloride Carbon Dioxide Anion Gap BUN Creatinine Est GFR (CKD-EPI)AfAm Est GFR (CKD-EPI)NonAf Random Glucose Lactic Acid Calcium Phosphorus Magnesium Total Bilirubin AST ALT Alkaline Phosphatase LD Total Troponin I Total Protein Albumin Serum , Qual Urine Color Dk yellow Urine Appearance Cloudy Urine pH 6.0 Ur Specific Umpire 1.023 Urine Protein 1+ H Urine Glucose (UA) Negative Urine Ketones Trace H Urine Blood Negative Urine Nitrite Negative Urine Bilirubin Negative Urine Urobilinogen 1.0 Ur Leukocyte Esterase Negative Urine WBC (Auto) 7 Urine RBC (Auto) 2 Urine Casts (Auto) 75 U Pathogenic Cast Auto none seen U Epithel Cells (Auto) 16.1 U Sm Round Cell (Auto) none seen Urine Bacteria (Auto) 44.9 Opiates Screen Cancelled Methadone Screen Cancelled Barbiturate Screen Cancelled Phencyclidine Screen Cancelled Ur Amphetamines Screen Cancelled MDMA (Ecstasy) Screen Cancelled Benzodiazepines Screen Cancelled Cocaine Screen Cancelled U Marijuana (THC) Screen Cancelled Alcohol, Quantitative 06/06/19 06/06/19 06/06/19 21:30 21:30 21:30 WBC 38.2 H* RBC 3.97 Hgb 10.8 Hct 33.2 MCV 83.8 MCH 27.1 MCHC 32.4 RDW 17.6 H Plt Count 423 D MPV 9.5 D Absolute Neuts (auto) 35.8 H Neutrophils % 93.8 H Neutrophils % (Manual) 76.0 Band Neutrophils % 20.0 Lymphocytes % 1.3 L Lymphocytes % (Manual) 3.0 L Monocytes % 3.9 Monocytes % (Manual) 1 L Eosinophils % 1.0 Eosinophils % (Manual) 0.0 Basophils % 0.0 Basophils % (Manual) 0.0 Nucleated RBC % 0 Hypochromia 1+ Platelet Estimate Adequate Target Cells 1+ Ovalocytes Few PT with INR INR PTT (Actin FS) Anticoagulation Therapy Puncture Site ABG pH ABG pCO2 at Pt Temp ABG pO2 at Pt Temp ABG HCO3 ABG O2 Sat (Measured) ABG O2 Content ABG Base Excess Francisco Test VBG pH POC VBG pCO2 POC VBG pO2 VBG HCO3 VBG O2 Sat (Navid) VBG Base Excess Carboxyhemoglobin Methemoglobin O2 Delivery Device Oxygen Flow Rate Vent Mode Vent Rate Mechanical Rate Pressure Support Vent Sodium Cancelled Potassium Cancelled Chloride Cancelled Carbon Dioxide Cancelled Anion Gap Cancelled BUN Cancelled Creatinine Cancelled Est GFR (CKD-EPI)AfAm Cancelled Est GFR (CKD-EPI)NonAf Cancelled Random Glucose Cancelled Lactic Acid Calcium Cancelled Phosphorus Magnesium Cancelled Total Bilirubin Cancelled AST Cancelled ALT Cancelled Alkaline Phosphatase Cancelled LD Total Troponin I Total Protein Cancelled Albumin Cancelled Serum , Qual Urine Color Urine Appearance Urine pH Ur Specific Umpire Urine Protein Urine Glucose (UA) Urine Ketones Urine Blood Urine Nitrite Urine Bilirubin Urine Urobilinogen Ur Leukocyte Esterase Urine WBC (Auto) Urine RBC (Auto) Urine Casts (Auto) U Pathogenic Cast Auto U Epithel Cells (Auto) U Sm Round Cell (Auto) Urine Bacteria (Auto) Opiates Screen Methadone Screen Barbiturate Screen Phencyclidine Screen Ur Amphetamines Screen MDMA (Ecstasy) Screen Benzodiazepines Screen Cocaine Screen U Marijuana (THC) Screen Alcohol, Quantitative Active Medications Generic Name Dose Route Start Last Admin Trade Name Freq PRN Reason Stop Dose Admin Albuterol Sulfate 1 amp 06/07/19 06:20 Ventolin 0.083% Nebulizer Soln - NEB Q4H PRN SHORT OF BREATH/WHEEZING Heparin Sodium (Porcine) 5,000 unit 06/07/19 10:00 Heparin - SQ BID ANATOLY Azithromycin 500 mg in 250 mls @ 250 mls/hr 06/07/19 10:00 Zithromax 500mg Ivpb (Pre-Docked) IVPB DAILY ANATOLY Piperacillin Sod/Tazobactam 50 mls @ 100 mls/hr 06/07/19 10:00 Sod 3.375 gm/ Dextrose IVPB Q8H-IV ANATOLY Protocol Piperacillin Sod/Tazobactam 50 mls @ 100 mls/hr 06/07/19 10:00 Sod 3.375 gm/ Dextrose IVPB 06/08/19 09:59 Q8H-IV ANATOLY Trimethoprim/Sulfamethoxazole 262.5 mls @ 175 mls/hr 06/07/19 10:00 200 mg/ Dextrose IVPB Q8H-IV ANATOLY Sodium Chloride 1,000 mls @ 100 mls/hr 06/07/19 08:24 06/07/19 08:40 Normal Saline - IV 100 mls/hr ASDIR ANATOLY Administration Vancomycin HCl 1,000 mg 06/07/19 10:00 Vancomycin (Pre-Docked) IVPB DAILY ANATOLY Protocol ASSESSMENT/PLAN: #PNA #Sepsis #HIV #Leukocytosis #hx of Substance abuse #COPD #Asthma #RUL nodule #Anemia -IV fluids -maintain MAP >65 -I/O's -follow up Bcx, Ucx -ID consult -FU CTAP -obtain CD4 count -IV ABx -obtain echo -duonebs PRN -AM CXR ICU monitoring Dispo: We will continue to follow the patient. Thank you for this consultative opportunity. Visit type - Emergency Visit Emergency Visit: Yes ED Registration Date: 06/07/19 Care time: The patient presented to the Emergency Department on the above date and was hospitalized for further evaluation of their emergent condition. - New Patient This patient is new to me today: Yes Date on this admission: 06/08/19 - Critical Care Critical Care patient: Yes Total Critical Care Time (in minutes): 40 Critical Care Statement: The care of this patient involved high complexity decision making to prevent further life threatening deterioration of the patient 's condition and/or to evaluate & treat vital organ system(s) failure or risk of failure. ATTENDING PHYSICIAN STATEMENT I saw and evaluated the patient. I reviewed the resident's note and discussed the case with the resident. I agree with the resident's findings and plan as documented. SUBJECTIVE: OBJECTIVE: ASSESSMENT AND PLAN:
[2019-06-07] MEDS ORDERED: PIPERACILLIN/TAZOBACTAM 3.375 GM VIAL IVPB ONE (12:10)
[2019-06-07] MEDS ORDERED: PT OWN MED DRAWER 7, Y5N ONE (12:10)
[2019-06-07] MEDS ORDERED: DEXTROSE 5%-WATER - 50 ML IVPB ONE (12:11)
[2019-06-07 12:32] LABS: ALBUMIN 1.3 g/dl (3.4-5.0); BILIRUBIN,TOTAL 0.5 mg/dL (0.2-1); BLOOD UREA NITROGEN 30.3 mg/dL (7-18); CALCIUM 7.5 mg/dL (8.5-10.1); CREATININE 0.4 mg/dL (0.55-1.3); MAGNESIUM 2.2 mg/dL (1.8-2.4); POTASSIUM 3.8 mmol/L (3.5-5.1); TOT PROT 5.8 g/dl (6.4-8.2)
--- NOTE | 2019-06-07 13:00 | PN ---
Progress Note (short form) - Note Progress Note: ID CONSULT DICTATED PROBABLE COMMUNITY ACQUIRED V. ATYPICAL PNEUMOMIA EXACERBATION COPD HIV? AIDS AWAIT C/S EMPIRIC ZITHROMAX/CEFTRIAXONE CD4 COUNT ART
--- NOTE | 2019-06-07 13:07 | PN ---
Teaching Attending Note Name of Resident: Aziza Acevedo ATTENDING PHYSICIAN STATEMENT I saw and evaluated the patient. I reviewed the resident's note and discussed the case with the resident. I agree with the resident's findings and plan as documented. SUBJECTIVE: Seen at 9 am. she denies any SOB , pain, cough, or ESTEVES. she reports diarrhea during the week , now resolved. had a BM yesterday OBJECTIVE: NAD, awake, cooperative. HEENT: teeth missing. slightly dry MM. no LAP in neck . no facial droop. Nl oropharynx CV: RRR, no MRG Lungs: crackles on R lung field half way down. Abd: distended , tympanic. NT. NL BS ASSESSMENT AND PLAN: 48 y/o lady with h/o untreated HIV, heroin abuse who presented with cough. She was found to have sepsis due to B./l PNA 1- Sepsis due to B/l CAP. CT scan reviewed. Hypotensive to 70s at time of evaluation. - IVF boluses were given ( 2 L ) - BP improved - cont ceftriaxone . - Dc azithro and add doxycyclin due to prolonged Qtc of 570. - follow blood cx . - follow legionella and pneumococcal Ag - follow B d glucan , but ON CT scan pneumonia looks lobar which makes it unlikely to be PCP - Cont IVF.Change to D5NS due to hypoglycemia - pressors if needed 2- Acute hypoxic resp failure, due to b/l PNA. - off Gissell mask , cont O2 through NC 3- Hypoglycemia : could eb due to sepsis in addition to poor po intake 4- Abdominal distention: on review of the chest CT images, the included part of the colon is dilated with no wall thickening - she reproted diarrhea in past week - will check c diff - will obtain CT of abd /pelvis . can't use IV contrast as she just received it last night - r/o ileus vs amelia colon Vs other 5- H/o HIV: not on therapy x 1 year. - CD count pending. 6- DVT PX . increase heparin to TID
[2019-06-07 13:12] VITALS: BMI 18.6
--- NOTE | 2019-06-07 13:25 | CONS ---
INFECTIOUS DISEASE CONSULTATION DATE OF CONSULTATION: DATE OF DICTATION: 06/07/2019 HISTORY OF PRESENT ILLNESS: The patient is a 48-year-old female, history of HIV, possible AIDS, evaluated for pneumonia. History was obtained from the chart, as she cannot give a reliable history. She was admitted to [facility] for detox from heroin and alcohol. While there, she developed worsening shortness of breath, respiratory distress, requiring transfer to acute care. Chest x-ray and CAT shows extensive right lower lobe lobar consolidation. According to the notes, she had cough productive of brownish sputum for several days prior to admission. At the present time, she is awake; however, she appears confused. She denies any chest pain. Her breathing is nonlabored on nasal cannula O2. No cough was noted. According to the notes, she has a history of HIV with a long history of noncompliance. Her most recent viral load and T-cell count are not available. PAST MEDICAL HISTORY: Also, positive for COPD, asthma. ALLERGIES: No known allergies. MEDICATIONS: Norvir, Truvada, Prezista. SOCIAL HISTORY: Positive for tobacco and heroin use. LABORATORY DATA: White count on admission 38,000 with left shift, hematocrit 27.1, platelets 353. Glucose 46, creatinine 0.4. Total bilirubin 0.5, alkaline phosphatase 160, AST 57. LDH 348. Cultures are pending. PHYSICAL EXAMINATION: General: On exam, she is awake. She is confused. Vital Signs: Temperature 97.8, T-maximum 99.3, blood pressure 81/43, pulse 69 regular, respirations 18 per minute. Eyes: Sclerae are anicteric. Throat: Oropharynx negative. Neck: Supple. Heart: Heart sounds S1, S2. Lungs: Grossly clear bilaterally. Poor inspiratory effort. Abdomen: Soft and nontender. Extremities: Negative for edema. IMPRESSION: 1. Probable community acquired versus atypical right lower lobe pneumonia. 2. Possible sepsis, secondary to pneumonia. 3. Marked leukocytosis. 4. Human immunodeficiency virus positive. Possible acquired immunodeficiency syndrome. 5. Hypoglycemia, secondary to sepsis. Await cultures. Obtain sputum culture, urine legionella and pneumococcal antigens, CD4 lymphocyte count. Continue antiretroviral therapy. Prognosis is guarded. Will follow. Thank you for the kind referral. MARY MCLAUGHLIN M.D. [id number]
[2019-06-07 13:37] LABS: ANISOCYTOSIS 1+; PLATELET ESTIMATE NORMAL
[2019-06-07] MEDS ORDERED: methylPREDNISolone 8 MG TABLET PO SCH (13:45)
[2019-06-07] MEDS ORDERED: SODIUM CHLORIDE 0.9% 500 ML INFUS.BAG IV ONE ×2 (14:13→17:11)
--- NOTE | 2019-06-07 14:23 | PN ---
Physical Exam: SUBJECTIVE: Patient seen and examined. She denies shortness of breath, cough, chest pain, fever, or chills. OBJECTIVE: Vital Signs Period Temp Pulse Resp BP Sys/Juárez Pulse Ox Last 24 Hr 97.8 F-99.3 F 61-102 16-24 70-109/42-83 78-100 GENERAL: The patient is awake, alert, and fully oriented, in no acute distress. HEAD: Normal with no signs of trauma. EYES: PERRL, extraocular movements intact, conjunctiva clear. ENT: Ears normal, nares patent, dry mucous membranes, tooth loss NECK: Trachea midline, full range of motion, supple. LUNGS: Clear to auscultation bilaterally, no wheezes HEART: Regular rate and rhythm, no murmur. ABDOMEN: Soft, nontender, nondistended, normoactive bowel sounds EXTREMITIES: Warm, well-perfused, no edema. NEUROLOGICAL: Cranial nerves II through XII grossly intact. PSYCH: Normal mood, normal affect. SKIN: Warm, dry Laboratory Results - last 24 hr 06/06/19 06/06/19 06/06/19 20:55 20:55 21:30 WBC RBC Hgb Hct MCV MCH MCHC RDW Plt Count MPV Absolute Neuts (auto) Neutrophils % Neutrophils % (Manual) Band Neutrophils % Lymphocytes % Lymphocytes % (Manual) Monocytes % Monocytes % (Manual) Eosinophils % Eosinophils % (Manual) Basophils % Basophils % (Manual) Myelocytes % (Man) Promyelocytes % (Man) Blast Cells % (Manual) Nucleated RBC % Metamyelocytes Hypochromia Platelet Estimate Anisocytosis Target Cells Ovalocytes PT with INR INR PTT (Actin FS) 27.4 Anticoagulation Therapy Puncture Site ABG pH ABG pCO2 at Pt Temp ABG pO2 at Pt Temp ABG HCO3 ABG O2 Sat (Measured) ABG O2 Content ABG Base Excess [place] Test VBG pH POC VBG pCO2 POC VBG pO2 VBG HCO3 VBG O2 Sat ([place]id) VBG Base Excess Carboxyhemoglobin Methemoglobin O2 Delivery Device Oxygen Flow Rate Vent Mode Vent Rate Mechanical Rate Pressure Support Vent Sodium Potassium Chloride Carbon Dioxide Anion Gap BUN Creatinine Est GFR (CKD-EPI)AfAm Est GFR (CKD-EPI)NonAf Random Glucose Lactic Acid Calcium Phosphorus Magnesium Total Bilirubin AST ALT Alkaline Phosphatase LD Total Troponin I Total Protein Albumin TSH Serum , Qual Urine Color Dk yellow Urine Appearance Cloudy Urine pH 6.0 Ur Specific [place] 1.023 Urine Protein 1+ H Urine Glucose (UA) Negative Urine Ketones Trace H Urine Blood Negative Urine Nitrite Negative Urine Bilirubin Negative Urine Urobilinogen 1.0 Ur Leukocyte Esterase Negative Urine WBC (Auto) 7 Urine RBC (Auto) 2 Urine Casts (Auto) 75 U Pathogenic Cast Auto none seen U Epithel Cells (Auto) 16.1 U Sm Round Cell (Auto) none seen Urine Bacteria (Auto) 44.9 Opiates Screen Cancelled Methadone Screen Cancelled Barbiturate Screen Cancelled Phencyclidine Screen Cancelled Ur Amphetamines Screen Cancelled MDMA (Ecstasy) Screen Cancelled Benzodiazepines Screen Cancelled Cocaine Screen Cancelled U Marijuana (THC) Screen Cancelled Alcohol, Quantitative HIV 1&2 Antibody Screen HIV P24 Antigen 06/06/19 06/06/19 06/06/19 21:30 21:30 21:30 WBC 38.2 H* RBC 3.97 Hgb 10.8 Hct 33.2 MCV 83.8 MCH 27.1 MCHC 32.4 RDW 17.6 H Plt Count 423 D MPV 9.5 D Absolute Neuts (auto) 35.8 H Neutrophils % 93.8 H Neutrophils % (Manual) 76.0 Band Neutrophils % 20.0 Lymphocytes % 1.3 L Lymphocytes % (Manual) 3.0 L Monocytes % 3.9 Monocytes % (Manual) 1 L Eosinophils % 1.0 Eosinophils % (Manual) 0.0 Basophils % 0.0 Basophils % (Manual) 0.0 Myelocytes % (Man) Promyelocytes % (Man) Blast Cells % (Manual) Nucleated RBC % 0 Metamyelocytes Hypochromia 1+ Platelet Estimate Adequate Anisocytosis Target Cells 1+ Ovalocytes Few PT with INR INR PTT (Actin FS) Anticoagulation Therapy Puncture Site ABG pH ABG pCO2 at Pt Temp ABG pO2 at Pt Temp ABG HCO3 ABG O2 Sat (Measured) ABG O2 Content ABG Base Excess [place] Test VBG pH POC VBG pCO2 POC VBG pO2 VBG HCO3 VBG O2 Sat ([place]) VBG Base Excess Carboxyhemoglobin Methemoglobin O2 Delivery Device Oxygen Flow Rate Vent Mode Vent Rate Mechanical Rate Pressure Support Vent Sodium Cancelled Potassium Cancelled Chloride Cancelled Carbon Dioxide Cancelled Anion Gap Cancelled BUN Cancelled Creatinine Cancelled Est GFR (CKD-EPI)AfAm Cancelled Est GFR (CKD-EPI)NonAf Cancelled Random Glucose Cancelled Lactic Acid Calcium Cancelled Phosphorus Magnesium Cancelled Total Bilirubin Cancelled AST Cancelled ALT Cancelled Alkaline Phosphatase Cancelled LD Total Troponin I Total Protein Cancelled Albumin Cancelled TSH Serum , Qual Urine Color Urine Appearance Urine pH Ur Specific [place] Urine Protein Urine Glucose (UA) Urine Ketones Urine Blood Urine Nitrite Urine Bilirubin Urine Urobilinogen Ur Leukocyte Esterase Urine WBC (Auto) Urine RBC (Auto) Urine Casts (Auto) U Pathogenic Cast Auto U Epithel Cells (Auto) U Sm Round Cell (Auto) Urine Bacteria (Auto) Opiates Screen Methadone Screen Barbiturate Screen Phencyclidine Screen Ur Amphetamines Screen MDMA (Ecstasy) Screen Benzodiazepines Screen Cocaine Screen U Marijuana (THC) Screen Alcohol, Quantitative HIV 1&2 Antibody Screen HIV P24 Antigen 06/06/19 06/06/19 06/06/19 21:30 21:30 21:30 WBC RBC Hgb Hct MCV MCH MCHC RDW Plt Count MPV Absolute Neuts (auto) Neutrophils % Neutrophils % (Manual) Band Neutrophils % Lymphocytes % Lymphocytes % (Manual) Monocytes % Monocytes % (Manual) Eosinophils % Eosinophils % (Manual) Basophils % Basophils % (Manual) Myelocytes % (Man) Promyelocytes % (Man) Blast Cells % (Manual) Nucleated RBC % Metamyelocytes Hypochromia Platelet Estimate Anisocytosis Target Cells Ovalocytes PT with INR 15.20 H INR 1.28 H PTT (Actin FS) Anticoagulation Therapy Puncture Site ABG pH ABG pCO2 at Pt Temp ABG pO2 at Pt Temp ABG HCO3 ABG O2 Sat (Measured) ABG O2 Content ABG Base Excess [place] Test VBG pH POC VBG pCO2 POC VBG pO2 VBG HCO3 VBG O2 Sat ([place]) VBG Base Excess Carboxyhemoglobin Methemoglobin O2 Delivery Device Oxygen Flow Rate Vent Mode Vent Rate Mechanical Rate Pressure Support Vent Sodium Potassium Chloride Carbon Dioxide Anion Gap BUN Creatinine Est GFR (CKD-EPI)AfAm Est GFR (CKD-EPI)NonAf Random Glucose Lactic Acid Calcium Phosphorus Cancelled Magnesium Total Bilirubin AST ALT Alkaline Phosphatase LD Total Troponin I Total Protein Albumin TSH Serum , Qual Negative Urine Color Urine Appearance Urine pH Ur Specific [place] Urine Protein Urine Glucose (UA) Urine Ketones Urine Blood Urine Nitrite Urine Bilirubin Urine Urobilinogen Ur Leukocyte Esterase Urine WBC (Auto) Urine RBC (Auto) Urine Casts (Auto) U Pathogenic Cast Auto U Epithel Cells (Auto) U Sm Round Cell (Auto) Urine Bacteria (Auto) Opiates Screen Methadone Screen Barbiturate Screen Phencyclidine Screen Ur Amphetamines Screen MDMA (Ecstasy) Screen Benzodiazepines Screen Cocaine Screen U Marijuana (THC) Screen Alcohol, Quantitative Cancelled HIV 1&2 Antibody Screen HIV P24 Antigen 06/06/19 06/06/19 06/06/19 21:30 21:30 21:30 WBC RBC Hgb Hct MCV MCH MCHC RDW Plt Count MPV Absolute Neuts (auto) Neutrophils % Neutrophils % (Manual) Band Neutrophils % Lymphocytes % Lymphocytes % (Manual) Monocytes % Monocytes % (Manual) Eosinophils % Eosinophils % (Manual) Basophils % Basophils % (Manual) Myelocytes % (Man) Promyelocytes % (Man) Blast Cells % (Manual) Nucleated RBC % Metamyelocytes Hypochromia Platelet Estimate Anisocytosis Target Cells Ovalocytes PT with INR INR PTT (Actin FS) Anticoagulation Therapy Puncture Site ABG pH ABG pCO2 at Pt Temp ABG pO2 at Pt Temp ABG HCO3 ABG O2 Sat (Measured) ABG O2 Content ABG Base Excess [place] Test VBG pH 7.33 POC VBG pCO2 67.6 H POC VBG pO2 < 49 H VBG HCO3 35.0 H VBG O2 Sat ([place]) 39.6 L VBG Base Excess 7.6 H Carboxyhemoglobin Methemoglobin O2 Delivery Device Oxygen Flow Rate Vent Mode Vent Rate Mechanical Rate Pressure Support Vent Sodium 133 L Potassium 5.0 Chloride 92 L Carbon Dioxide 33 H Anion Gap 8 BUN 55.0 H Creatinine 1.3 Est GFR (CKD-EPI)AfAm 55.40 Est GFR (CKD-EPI)NonAf 47.80 Random Glucose 86 Lactic Acid Calcium 9.2 Phosphorus 3.4 Magnesium 2.5 H Total Bilirubin 0.3 AST 58 H ALT 24 Alkaline Phosphatase 163 H LD Total 348 H Troponin I < 0.02 Total Protein 7.9 Albumin 1.9 L TSH Serum , Qual Urine Color Urine Appearance Urine pH Ur Specific [place] Urine Protein Urine Glucose (UA) Urine Ketones Urine Blood Urine Nitrite Urine Bilirubin Urine Urobilinogen Ur Leukocyte Esterase Urine WBC (Auto) Urine RBC (Auto) Urine Casts (Auto) U Pathogenic Cast Auto U Epithel Cells (Auto) U Sm Round Cell (Auto) Urine Bacteria (Auto) Opiates Screen Methadone Screen Barbiturate Screen Phencyclidine Screen Ur Amphetamines Screen MDMA (Ecstasy) Screen Benzodiazepines Screen Cocaine Screen U Marijuana (THC) Screen Alcohol, Quantitative < 3.0 HIV 1&2 Antibody Screen HIV P24 Antigen 06/06/19 06/07/19 06/07/19 21:38 00:54 05:10 WBC RBC Hgb Hct MCV MCH MCHC RDW Plt Count MPV Absolute Neuts (auto) Neutrophils % Neutrophils % (Manual) Band Neutrophils % Lymphocytes % Lymphocytes % (Manual) Monocytes % Monocytes % (Manual) Eosinophils % Eosinophils % (Manual) Basophils % Basophils % (Manual) Myelocytes % (Man) Promyelocytes % (Man) Blast Cells % (Manual) Nucleated RBC % Metamyelocytes Hypochromia Platelet Estimate Anisocytosis Target Cells Ovalocytes PT with INR INR PTT (Actin FS) Anticoagulation Therapy No Result Required. No Result Required. Puncture Site No Result Required. Right radial ABG pH 7.38 7.32 L ABG pCO2 at Pt Temp 51.9 H 60.1 H ABG pO2 at Pt Temp 99.5 105 H ABG HCO3 30.1 H 30.4 H ABG O2 Sat (Measured) 96.9 96.4 ABG O2 Content 12.1 96.4 ABG Base Excess 4.8 H 3.7 H Francisco Test Positive Positive VBG pH POC VBG pCO2 POC VBG pO2 VBG HCO3 VBG O2 Sat ([place]id) VBG Base Excess Carboxyhemoglobin 1.5 Methemoglobin < 1.0 O2 Delivery Device No Result Required. No Result Required. Oxygen Flow Rate No Result Required. 100% Vent Mode No Result Required. No Result Required. Vent Rate No Result Required. No Result Required. Mechanical Rate No Result Required. No Result Required. Pressure Support Vent No Result Required. No Result Required. Sodium Potassium Chloride Carbon Dioxide Anion Gap BUN Creatinine Est GFR (CKD-EPI)AfAm Est GFR (CKD-EPI)NonAf Random Glucose Lactic Acid 1.7 Calcium Phosphorus Magnesium Total Bilirubin AST ALT Alkaline Phosphatase LD Total Troponin I Total Protein Albumin TSH Serum , Qual Urine Color Urine Appearance Urine pH Ur Specific [place] Urine Protein Urine Glucose (UA) Urine Ketones Urine Blood Urine Nitrite Urine Bilirubin Urine Urobilinogen Ur Leukocyte Esterase Urine WBC (Auto) Urine RBC (Auto) Urine Casts (Auto) U Pathogenic Cast Auto U Epithel Cells (Auto) U Sm Round Cell (Auto) Urine Bacteria (Auto) Opiates Screen Methadone Screen Barbiturate Screen Phencyclidine Screen Ur Amphetamines Screen MDMA (Ecstasy) Screen Benzodiazepines Screen Cocaine Screen U Marijuana (THC) Screen Alcohol, Quantitative HIV 1&2 Antibody Screen HIV P24 Antigen 06/07/19 06/07/19 06/07/19 11:20 11:20 11:20 WBC 26.6 H RBC 3.26 L Hgb 8.7 L Hct 27.1 L D MCV 83.1 MCH 26.7 MCHC 32.2 RDW 18.2 H Plt Count 353 MPV 9.0 Absolute Neuts (auto) 22.0 H Neutrophils % 82.6 Neutrophils % (Manual) 95.0 H Band Neutrophils % 0.0 Lymphocytes % 1.0 L D Lymphocytes % (Manual) 2.0 L D Monocytes % 15.4 H D Monocytes % (Manual) 2 L D Eosinophils % 0.7 Eosinophils % (Manual) 0.0 Basophils % 0.3 D Basophils % (Manual) 0.0 Myelocytes % (Man) 1 Promyelocytes % (Man) 0 Blast Cells % (Manual) 0 Nucleated RBC % 0 Metamyelocytes 0 Hypochromia Platelet Estimate Normal Anisocytosis 1+ Target Cells Ovalocytes PT with INR INR PTT (Actin FS) Anticoagulation Therapy Puncture Site ABG pH ABG pCO2 at Pt Temp ABG pO2 at Pt Temp ABG HCO3 ABG O2 Sat (Measured) ABG O2 Content ABG Base Excess [place] Test VBG pH POC VBG pCO2 POC VBG pO2 VBG HCO3 VBG O2 Sat ([place]) VBG Base Excess Carboxyhemoglobin Methemoglobin O2 Delivery Device Oxygen Flow Rate Vent Mode Vent Rate Mechanical Rate Pressure Support Vent Sodium 138 Potassium 3.8 Chloride 103 Carbon Dioxide 32 Anion Gap 3 L BUN 30.3 H Creatinine 0.4 L Est GFR (CKD-EPI)AfAm 140.76 Est GFR (CKD-EPI)NonAf 121.45 Random Glucose 46 L* Lactic Acid Calcium 7.5 L Phosphorus Magnesium 2.2 Total Bilirubin 0.5 AST 57 H ALT 21 Alkaline Phosphatase 160 H LD Total 190 Troponin I Total Protein 5.8 L Albumin 1.3 L TSH 1.74 Serum , Qual Urine Color Urine Appearance Urine pH Ur Specific [place] Urine Protein Urine Glucose (UA) Urine Ketones Urine Blood Urine Nitrite Urine Bilirubin Urine Urobilinogen Ur Leukocyte Esterase Urine WBC (Auto) Urine RBC (Auto) Urine Casts (Auto) U Pathogenic Cast Auto U Epithel Cells (Auto) U Sm Round Cell (Auto) Urine Bacteria (Auto) Opiates Screen Methadone Screen Barbiturate Screen Phencyclidine Screen Ur Amphetamines Screen MDMA (Ecstasy) Screen Benzodiazepines Screen Cocaine Screen U Marijuana (THC) Screen Alcohol, Quantitative HIV 1&2 Antibody Screen Preliminary positive A HIV P24 Antigen Negative Active Medications Generic Name Dose Route Start Last Admin Trade Name Freq PRN Reason Stop Dose Admin Albuterol/Ipratropium 1 amp 06/07/19 12:04 Duoneb - NEB Q4H PRN SHORTNESS OF BREATH Heparin Sodium (Porcine) 5,000 unit 06/07/19 14:00 Heparin - SQ TID ANATOLY Ceftriaxone Sodium 2 gm/ 100 mls @ 100 mls/hr 06/07/19 14:00 Dextrose IVPB DAILY ANATOLY Protocol Dextrose/Sodium Chloride 1,000 mls @ 100 mls/hr 06/07/19 13:15 D5-Ns - IV ASDIR ANATOLY Doxycycline Hyclate 100 mg/ 100 mls @ 100 mls/hr 06/08/19 10:00 Dextrose IVPB BID ANATOLY Methylprednisolone 40 mg 06/07/19 13:45 Medrol - PO DAILY ANATOLY Sodium Chloride 500 ml 06/07/19 14:13 Normal Saline - IV 06/07/19 14:14 ONCE ONE ASSESSMENT/PLAN: Ms. Galvez is a 48y/o female with HIV (not on HAART), COPD, asthma, and heroin abuse c/o cough for 1 week. She was admitted for PNA. #sepsis 2/2 CAP Leukocytosis 38.2 at presentation as well as hypotension which was fluid responsive. CTA showed RLL and RML consolidation. -Legionella and pneumococcal negative -sputum and blood cx pending -doxycycline day 1 (prolonged QTc) -ceftriaxone day 1 #?COPD exacerbation -solumedrol -duo-nebs #r/o toxic megacolon Large colon also found on CTA -CT abdomen/pelvis -c diff study #transaminitis -trend labs #HIV Not currently on tx -CD 4 -ART -ID following FEN D5NS 100mL monitor labs sodium controlled diet Visit type - Emergency Visit Emergency Visit: Yes ED Registration Date: 06/07/19 Care time: The patient presented to the Emergency Department on the above date and was hospitalized for further evaluation of their emergent condition. - New Patient This patient is new to me today: Yes Date on this admission: 06/07/19 - Critical Care Critical Care patient: Yes Total Critical Care Time (in minutes): 35 Critical Care Statement: The care of this patient involved high complexity decision making to prevent further life threatening deterioration of the patient 's condition and/or to evaluate & treat vital organ system(s) failure or risk of failure. - Discharge Referral Referred to [facility] No ATTENDING PHYSICIAN STATEMENT I saw and evaluated the patient. I reviewed the resident's note and discussed the case with the resident. I agree with the resident's findings and plan as documented. SUBJECTIVE: OBJECTIVE: ASSESSMENT AND PLAN:
--- NOTE | 2019-06-07 15:04 | PN ---
Teaching Attending Note Name of Resident: Eneida Balderrama ATTENDING PHYSICIAN STATEMENT I saw and evaluated the patient. I reviewed the resident's note and discussed the case with the resident. I agree with the resident's findings and plan as documented. SUBJECTIVE: Patient seen and examined in the ICU. Awake and alert. Hypotensive despite fluid. Congested cough. No hemoptysis. No CP. Intake & Output 06/04/19 06/05/19 06/06/19 06/07/19 23:59 23:59 23:59 23:59 Output Total 300 Balance -300 Weight 90 lb 6.656 oz 95 lb 11.2 oz Last Vital Signs Temp Pulse Resp BP Pulse Ox 97.8 F 70 16 75/47 L 100 06/07/19 13:06 06/07/19 13:13 06/07/19 13:13 06/07/19 13:13 06/07/19 06:30 Active Medications Albuterol/Ipratropium (Duoneb -) 1 amp NEB Q4H PRN PRN Reason: SHORTNESS OF BREATH Heparin Sodium (Porcine) (Heparin -) 5,000 unit SQ TID ANATOLY Ceftriaxone Sodium 2 gm/ (Dextrose) 100 mls @ 100 mls/hr IVPB DAILY ANATOLY; Protocol Dextrose/Sodium Chloride (D5-Ns -) 1,000 mls @ 100 mls/hr IV ASDIR ANATOLY Doxycycline Hyclate 100 mg/ (Dextrose) 100 mls @ 100 mls/hr IVPB BID ANATOLY Methylprednisolone (Medrol -) 40 mg PO DAILY ANATOLY GENERAL: Awake, alert, and oriented, in no acute distress. HEAD: Normal with no signs of trauma. EYES: Pupils equal, round and reactive to light, extraocular movements intact, sclera anicteric, conjunctiva clear. No lid lag. EARS, NOSE, THROAT: Ears normal, nares patent, oropharynx clear without exudates. Moist mucous membranes. NECK: Normal range of motion, supple without lymphadenopathy, JVD, or masses. LUNGS: Coarse crackles in the RLL, no wheeze, no accessory muscle use. HEART: Regular rate and rhythm, normal S1 and S2 without murmur, rub or gallop. ABDOMEN: Soft, nontender, not distended, normoactive bowel sounds, no guarding, no rebound, no masses. No hepatomegaly or splenomegaly. MUSCULOSKELETAL: Normal range of motion at all joints. No bony deformities or tenderness. No CVA tenderness. UPPER EXTREMITIES: 2+ pulses, warm, well-perfused. No cyanosis. No clubbing. Cap refill <2 seconds. No peripheral edema. LOWER EXTREMITIES: 2+ pulses, warm, well-perfused. No calf tenderness. No peripheral edema. NEUROLOGICAL: Non-focal PSYCHIATRIC: Cooperative. Good eye contact. Appropriate mood and affect. SKIN: Warm, dry, normal turgor, no rashes or lesions noted. Laboratory Results - last 24 hr 06/06/19 06/06/19 06/06/19 20:55 20:55 21:30 WBC RBC Hgb Hct MCV MCH MCHC RDW Plt Count MPV Absolute Neuts (auto) Neutrophils % Neutrophils % (Manual) Band Neutrophils % Lymphocytes % Lymphocytes % (Manual) Monocytes % Monocytes % (Manual) Eosinophils % Eosinophils % (Manual) Basophils % Basophils % (Manual) Nucleated RBC % Hypochromia Platelet Estimate Target Cells Ovalocytes PT with INR INR PTT (Actin FS) 27.4 Anticoagulation Therapy Puncture Site ABG pH ABG pCO2 at Pt Temp ABG pO2 at Pt Temp ABG HCO3 ABG O2 Sat (Measured) ABG O2 Content ABG Base Excess [place] Test VBG pH POC VBG pCO2 POC VBG pO2 VBG HCO3 VBG O2 Sat ([place]) VBG Base Excess Carboxyhemoglobin Methemoglobin O2 Delivery Device Oxygen Flow Rate Vent Mode Vent Rate Mechanical Rate Pressure Support Vent Sodium Potassium Chloride Carbon Dioxide Anion Gap BUN Creatinine Est GFR (CKD-EPI)AfAm Est GFR (CKD-EPI)NonAf Random Glucose Lactic Acid Calcium Phosphorus Magnesium Total Bilirubin AST ALT Alkaline Phosphatase LD Total Troponin I Total Protein Albumin Serum , Qual Urine Color Dk yellow Urine Appearance Cloudy Urine pH 6.0 Ur Specific [place] 1.023 Urine Protein 1+ H Urine Glucose (UA) Negative Urine Ketones Trace H Urine Blood Negative Urine Nitrite Negative Urine Bilirubin Negative Urine Urobilinogen 1.0 Ur Leukocyte Esterase Negative Urine WBC (Auto) 7 Urine RBC (Auto) 2 Urine Casts (Auto) 75 U Pathogenic Cast Auto none seen U Epithel Cells (Auto) 16.1 U Sm Round Cell (Auto) none seen Urine Bacteria (Auto) 44.9 Opiates Screen Cancelled Methadone Screen Cancelled Barbiturate Screen Cancelled Phencyclidine Screen Cancelled Ur Amphetamines Screen Cancelled MDMA (Ecstasy) Screen Cancelled Benzodiazepines Screen Cancelled Cocaine Screen Cancelled U Marijuana (THC) Screen Cancelled Alcohol, Quantitative 06/06/19 06/06/19 06/06/19 21:30 21:30 21:30 WBC 38.2 H* RBC 3.97 Hgb 10.8 Hct 33.2 MCV 83.8 MCH 27.1 MCHC 32.4 RDW 17.6 H Plt Count 423 D MPV 9.5 D Absolute Neuts (auto) 35.8 H Neutrophils % 93.8 H Neutrophils % (Manual) 76.0 Band Neutrophils % 20.0 Lymphocytes % 1.3 L Lymphocytes % (Manual) 3.0 L Monocytes % 3.9 Monocytes % (Manual) 1 L Eosinophils % 1.0 Eosinophils % (Manual) 0.0 Basophils % 0.0 Basophils % (Manual) 0.0 Nucleated RBC % 0 Hypochromia 1+ Platelet Estimate Adequate Target Cells 1+ Ovalocytes Few PT with INR INR PTT (Actin FS) Anticoagulation Therapy Puncture Site ABG pH ABG pCO2 at Pt Temp ABG pO2 at Pt Temp ABG HCO3 ABG O2 Sat (Measured) ABG O2 Content ABG Base Excess [place] Test VBG pH POC VBG pCO2 POC VBG pO2 VBG HCO3 VBG O2 Sat ([place]) VBG Base Excess Carboxyhemoglobin Methemoglobin O2 Delivery Device Oxygen Flow Rate Vent Mode Vent Rate Mechanical Rate Pressure Support Vent Sodium Cancelled Potassium Cancelled Chloride Cancelled Carbon Dioxide Cancelled Anion Gap Cancelled BUN Cancelled Creatinine Cancelled Est GFR (CKD-EPI)AfAm Cancelled Est GFR (CKD-EPI)NonAf Cancelled Random Glucose Cancelled Lactic Acid Calcium Cancelled Phosphorus Magnesium Cancelled Total Bilirubin Cancelled AST Cancelled ALT Cancelled Alkaline Phosphatase Cancelled LD Total Troponin I Total Protein Cancelled Albumin Cancelled Serum , Qual Urine Color Urine Appearance Urine pH Ur Specific [place] Urine Protein Urine Glucose (UA) Urine Ketones Urine Blood Urine Nitrite Urine Bilirubin Urine Urobilinogen Ur Leukocyte Esterase Urine WBC (Auto) Urine RBC (Auto) Urine Casts (Auto) U Pathogenic Cast Auto U Epithel Cells (Auto) U Sm Round Cell (Auto) Urine Bacteria (Auto) Opiates Screen Methadone Screen Barbiturate Screen Phencyclidine Screen Ur Amphetamines Screen MDMA (Ecstasy) Screen Benzodiazepines Screen Cocaine Screen U Marijuana (THC) Screen Alcohol, Quantitative ASSESSMENT/PLAN: Sepsis due to Multilobar CAP HIV Leukocytosis Hx of Substance abuse COPD Asthma RUL nodule Anemia -Continue aggressive IVF -Central line as she will likely need pressors -Maintain MAP >65 -Strict I/O's -ABX per ID -CT Abdomen and Pelvis -Check CD4 count -ECHO -BD TX -Follow CXR in AM Dr Yeung Critical care time spent in reviewing chart, evaluating patient and formulating plan - 36 minutes.
[2019-06-07] MEDS: HEPARIN NA (PORCINE) 5,000 UNITS/ML 1ML VIAL SQ SCH ×2 (15:20→21:16)
[2019-06-07] MEDS ORDERED: DEXTROSE 5%-WATER 100 ML IVPB ONE (15:53)
[2019-06-07] MEDS: CEFTRIAXONE 2 GM in DEXTROSE 5%-WATER 100 ML IVPB SCH (15:55)
[2019-06-07] MEDS: methylPREDNISolone NA SUCC 40 MG/1 ML VIAL IVPUSH SCH (16:01)
[2019-06-07] MEDS: DEXTROSE 5%-NORMAL SALINE 1,000 ML IV SCH (16:01)
[2019-06-08] MEDS: HEPARIN NA (PORCINE) 5,000 UNITS/ML 1ML VIAL SQ SCH ×3 (05:12→22:07)
[2019-06-08] MEDS: DEXTROSE 5%-NORMAL SALINE 1,000 ML IV SCH ×3 (05:16→22:08)
[2019-06-08 07:03] LABS: HEMATOCRIT 30.3 % (32.4-45.2); HEMOGLOBIN 9.7 GM/dL (10.7-15.3); MCHC 31.9 g/dl (32.0-36.0); MEAN CELL VOLUME 84.6 fl (80-96); MEAN PLT VOLUME 9.5 fl (7.5-11.1); PLATELET COUNT 347 K/MM3 (134-434); RBC 3.59 M/mm3 (3.60-5.2); WHITE BLOOD COUNT 18.2 K/mm3 (4.0-10.0)
[2019-06-08 07:50] LABS: ALBUMIN 1.1 g/dl (3.4-5.0); BILIRUBIN,TOTAL 0.2 mg/dL (0.2-1); BLOOD UREA NITROGEN 15.2 mg/dL (7-18); CALCIUM 7.5 mg/dL (8.5-10.1); CREATININE 0.4 mg/dL (0.55-1.3); MAGNESIUM 1.7 mg/dL (1.8-2.4)
--- NOTE | 2019-06-08 09:52 | PN ---
Physical Exam: SUBJECTIVE: Patient seen and examined. She reports feeling great. She reports only a dry cough. Denies chest pain, shortness of breath, abdominal pain, n,v. Pt has been urinating without difficulty and is tolerating diet well. OBJECTIVE: Vital Signs Period Temp Pulse Resp BP Sys/Juárez Pulse Ox Last 24 Hr 97.3 F-97.8 F 45-82 13-22 75-109/43-83 100-100 GENERAL: The patient is awake, alert, and fully oriented, in no acute distress. HEAD: Normal with no signs of trauma. EYES: PERRL, extraocular movements intact, conjunctiva clear. ENT: Ears normal, nares patent, dry mucous membranes, tooth loss NECK: Trachea midline, full range of motion, supple. LUNGS: Clear to auscultation bilaterally, no wheezes HEART: Regular rate and rhythm, no murmur. ABDOMEN: Soft, nontender, nondistended, normoactive bowel sounds EXTREMITIES: Warm, well-perfused, no edema. NEUROLOGICAL: Cranial nerves II through XII grossly intact. PSYCH: Normal mood, normal affect. SKIN: Warm, dry Laboratory Results - last 24 hr 06/07/19 06/07/19 06/07/19 11:20 11:20 11:20 WBC 26.6 H RBC 3.26 L Hgb 8.7 L Hct 27.1 L D MCV 83.1 MCH 26.7 MCHC 32.2 RDW 18.2 H Plt Count 353 MPV 9.0 Absolute Neuts (auto) 22.0 H Neutrophils % 82.6 Neutrophils % (Manual) 95.0 H Band Neutrophils % 0.0 Lymphocytes % 1.0 L D Lymphocytes % (Manual) 2.0 L D Monocytes % 15.4 H D Monocytes % (Manual) 2 L D Eosinophils % 0.7 Eosinophils % (Manual) 0.0 Basophils % 0.3 D Basophils % (Manual) 0.0 Myelocytes % (Man) 1 Promyelocytes % (Man) 0 Blast Cells % (Manual) 0 Nucleated RBC % 0 Metamyelocytes 0 Platelet Estimate Normal Anisocytosis 1+ Sodium 138 Potassium 3.8 Chloride 103 Carbon Dioxide 32 Anion Gap 3 L BUN 30.3 H Creatinine 0.4 L Est GFR (CKD-EPI)AfAm 140.76 Est GFR (CKD-EPI)NonAf 121.45 Random Glucose 46 L* Calcium 7.5 L Phosphorus Magnesium 2.2 Total Bilirubin 0.5 AST 57 H ALT 21 Alkaline Phosphatase 160 H LD Total 190 Total Protein 5.8 L Albumin 1.3 L TSH 1.74 HIV 1&2 Antibody Screen Preliminary positive A HIV P24 Antigen Negative 06/08/19 06/08/19 05:42 05:42 WBC 18.2 H RBC 3.59 L Hgb 9.7 L Hct 30.3 L MCV 84.6 MCH 27.0 MCHC 31.9 L RDW 18.0 H Plt Count 347 MPV 9.5 Absolute Neuts (auto) Neutrophils % Neutrophils % (Manual) Band Neutrophils % Lymphocytes % Lymphocytes % (Manual) Monocytes % Monocytes % (Manual) Eosinophils % Eosinophils % (Manual) Basophils % Basophils % (Manual) Myelocytes % (Man) Promyelocytes % (Man) Blast Cells % (Manual) Nucleated RBC % Metamyelocytes Platelet Estimate Anisocytosis Sodium 137 Potassium 4.0 Chloride 101 Carbon Dioxide 32 Anion Gap 4 L BUN 15.2 Creatinine 0.4 L Est GFR (CKD-EPI)AfAm 140.76 Est GFR (CKD-EPI)NonAf 121.45 Random Glucose 176 H Calcium 7.5 L Phosphorus 3.0 Magnesium 1.7 L Total Bilirubin 0.2 AST 58 H ALT 23 Alkaline Phosphatase 216 H LD Total Total Protein 5.0 L Albumin 1.1 L TSH HIV 1&2 Antibody Screen HIV P24 Antigen Active Medications Generic Name Dose Route Start Last Admin Trade Name Freq PRN Reason Stop Dose Admin Albuterol/Ipratropium 1 amp 06/07/19 12:04 Duoneb - NEB Q4H PRN SHORTNESS OF BREATH Heparin Sodium (Porcine) 5,000 unit 06/07/19 14:00 06/08/19 05:12 Heparin - SQ 5,000 unit TID ANATOLY Administration Ceftriaxone Sodium 2 gm/ 100 mls @ 100 mls/hr 06/07/19 14:00 06/07/19 15:55 Dextrose IVPB 100 mls/hr DAILY ANATOLY Administration Protocol Dextrose/Sodium Chloride 1,000 mls @ 100 mls/hr 06/07/19 13:15 06/08/19 05:16 D5-Ns - IV 100 mls/hr ASDIR ANATOLY Administration Doxycycline Hyclate 100 mg/ 100 mls @ 100 mls/hr 06/08/19 10:00 Dextrose IVPB BID ANATOLY Methylprednisolone Sodium Succinate 40 mg 06/07/19 16:00 06/07/19 16:01 Solu-Medrol - IVPUSH 40 mg DAILY ANATOLY Administration ASSESSMENT/PLAN: Ms. Galvez is a 48y/o female with HIV (not on HAART), COPD, asthma, and heroin use disorder presents with cough for 1 week. CTA showed right-side PNA and pt was admitted. #sepsis 2/2 CAP vs atypical PNA Leukocytosis improving. CTA showed RLL and RML consolidation. Legionella and pneumococcal negative. Sputum cx normal lay. -sputum Gram stain pending -blood cx pending-prelim negative -doxycycline day 2 (prolonged QTc) -ceftriaxone day 2 -ID following -IV bolus PRN hypotension -solumedrol -duo-nebs #transaminitis -trend labs #HIV Not currently on tx -CD 4 count pending -ID following #heroin use disorder -continue methadone tx #r/o toxic megacolon Large colon also found on CTA. Pt non-tender on exam. -CT abdomen/pelvis- pt refused PO contrast -c diff study pending DVT Ppx heparin FEN D5NS 100mL monitor labs sodium controlled diet dispo ICU Visit type - Emergency Visit Emergency Visit: Yes ED Registration Date: 06/07/19 Care time: The patient presented to the Emergency Department on the above date and was hospitalized for further evaluation of their emergent condition. - New Patient This patient is new to me today: No - Critical Care Critical Care patient: Yes Total Critical Care Time (in minutes): 35 Critical Care Statement: The care of this patient involved high complexity decision making to prevent further life threatening deterioration of the patient 's condition and/or to evaluate & treat vital organ system(s) failure or risk of failure. - Discharge Referral Referred to [facility] No ATTENDING PHYSICIAN STATEMENT I saw and evaluated the patient. I reviewed the resident's note and discussed the case with the resident. I agree with the resident's findings and plan as documented. SUBJECTIVE: OBJECTIVE: ASSESSMENT AND PLAN:
[2019-06-08] MEDS ORDERED: DOXYCYCLINE INJECTION 100 MG in DEXTROSE 5%-WATER - 100 ML IVPB SCH (10:00)
[2019-06-08] MEDS ORDERED: PT OWN MED DRAWER 7, Y5N ONE ×3 (10:04→12:02)
[2019-06-08] MEDS ORDERED: DEXTROSE 5%-WATER 100 ML IVPB ONE ×2 (10:05→20:57)
[2019-06-08] MEDS: CEFTRIAXONE 2 GM in DEXTROSE 5%-WATER 100 ML IVPB SCH (10:12)
[2019-06-08] MEDS: methylPREDNISolone NA SUCC 40 MG/1 ML VIAL IVPUSH SCH (10:12)
--- NOTE | 2019-06-08 10:36 | PN ---
Progress Note, Physician History of Present Illness: AWAKE, RESPONSIVE OFFERS NO COMPLAINTS DENIES CHEST PAIN/ DYPNEA/ COUGH BREATHING NON LABORED ON NASAL CANNULA AFEBRILE C/S NO GROWTH WBC IMPROVED - Current Medication List Current Medications: Active Medications Albuterol/Ipratropium (Duoneb -) 1 amp NEB Q4H PRN PRN Reason: SHORTNESS OF BREATH Heparin Sodium (Porcine) (Heparin -) 5,000 unit SQ TID [facility] Last Admin: 06/08/19 05:12 Dose: 5,000 unit Ceftriaxone Sodium 2 gm/ (Dextrose) 100 mls @ 100 mls/hr IVPB DAILY [facility]; Protocol Last Admin: 06/08/19 10:12 Dose: 100 mls/hr Dextrose/Sodium Chloride (D5-Ns -) 1,000 mls @ 100 mls/hr IV ASDIR ANATOLY Last Admin: 06/08/19 05:16 Dose: 100 mls/hr Doxycycline Hyclate 100 mg/ (Dextrose) 100 mls @ 100 mls/hr IVPB BID ANATOLY Methylprednisolone Sodium Succinate (Solu-Medrol -) 40 mg IVPUSH DAILY [facility] Last Admin: 06/08/19 10:12 Dose: 40 mg - Objective Vital Signs: Vital Signs Temperature 97.5 F L 06/08/19 10:20 Pulse Rate 46 L 06/08/19 10:20 Respiratory Rate 14 06/08/19 10:20 Blood Pressure 92/56 L 06/08/19 10:20 O2 Sat by Pulse Oximetry (%) 100 06/07/19 20:00 Constitutional: Yes: No Distress Eyes: Yes: PERRL Cardiovascular: Yes: Regular Rate and Rhythm, S1, S2 Respiratory: Yes: Diminished Gastrointestinal: Yes: Normal Bowel Sounds, Soft. No: Tenderness Edema: No Labs: CBC, BMP 06/08/19 05:42 06/08/19 05:42 INR, PTT INR 1.28 (0.83-1.09) H 06/06/19 21:30 Assessment/Plan RLL PNEUMONIA COMMUNITY ACQ V. ATYPICAL EXACERBATION COPD LEUKOCYTOSIS HIV/ ? AIDS CONTINUE EMPIRIC CEFTRIAXONE/ DOXYCYCLINE CHECK CD4
[2019-06-08] MEDS ORDERED: SODIUM CHLORIDE 500 ML IV STA (11:47)
--- NOTE | 2019-06-08 13:11 | PN ---
Physical Exam: SUBJECTIVE: Patient seen and examined. Pt. endorses impovement on her breathing and is asking to go home. Pt. states that she takes Methadone from a clinic on [address]. Call placed to [facility] at above location. They confirmed that her dose in 180mg Methadone per day, last dose was Thursday. OBJECTIVE: Vital Signs Period Temp Pulse Resp BP Sys/Juárez Pulse Ox Last 24 Hr 97.3 F-97.6 F 45-82 13-22 75-104/46-64 100-100 GENERAL: The patient is awake, alert, and fully oriented, in no acute distress. HEAD: Normal with no signs of trauma. EYES: Extraocular movements intact, sclera anicteric, conjunctiva clear. No ptosis. ENT: Ears normal, nares patent, oropharynx clear without exudates, moist mucous membranes. NECK: Trachea midline, full range of motion, supple. LUNGS: R. Lower lobe crackles, bilateral bibasilar ronchi HEART: Regular rate and rhythm, S1, S2 without murmur, rub or gallop. ABDOMEN: Soft, nontender, nondistended, normoactive bowel sounds EXTREMITIES: 2+ dorsal pedal pulses, warm, well-perfused, no edema. NEUROLOGICAL: Cranial nerves II through XII grossly intact. Slurred speech 2/2 absence of teeth, gait not observed. PSYCH: Normal mood, normal affect. SKIN: Warm, dry, normal turgor Laboratory Results - last 24 hr 06/07/19 06/08/19 06/08/19 11:20 05:42 05:42 WBC 18.2 H RBC 3.59 L Hgb 9.7 L Hct 30.3 L MCV 84.6 MCH 27.0 MCHC 31.9 L RDW 18.0 H Plt Count 347 MPV 9.5 Neutrophils % (Manual) 95.0 H Band Neutrophils % 0.0 Lymphocytes % (Manual) 2.0 L D Monocytes % (Manual) 2 L D Eosinophils % (Manual) 0.0 Basophils % (Manual) 0.0 Myelocytes % (Man) 1 Promyelocytes % (Man) 0 Blast Cells % (Manual) 0 Metamyelocytes 0 Platelet Estimate Normal Anisocytosis 1+ Sodium 137 Potassium 4.0 Chloride 101 Carbon Dioxide 32 Anion Gap 4 L BUN 15.2 Creatinine 0.4 L Est GFR (CKD-EPI)AfAm 140.76 Est GFR (CKD-EPI)NonAf 121.45 Random Glucose 176 H Calcium 7.5 L Phosphorus 3.0 Magnesium 1.7 L Total Bilirubin 0.2 AST 58 H ALT 23 Alkaline Phosphatase 216 H Total Protein 5.0 L Albumin 1.1 L Active Medications Home Medications Medication Instructions Recorded Darunavir Ethanolate [Prezista -] 800 mg PO DAILY 02/12/16 Emtricitabine/Tenofovir [Truvada] 1 tab PO DAILY 02/12/16 Ritonavir [Norvir -] 100 mg PO DAILY 02/12/16 Current Medications Albuterol/Ipratropium (Duoneb -) 1 amp NEB Q4H PRN PRN Reason: SHORTNESS OF BREATH Heparin Sodium (Porcine) (Heparin -) 5,000 unit SQ TID [facility] Last Admin: 06/08/19 05:12 Dose: 5,000 unit Ceftriaxone Sodium 2 gm/ (Dextrose) 100 mls @ 100 mls/hr IVPB DAILY [facility]; Protocol Last Admin: 06/08/19 10:12 Dose: 100 mls/hr Dextrose/Sodium Chloride (D5-Ns -) 1,000 mls @ 100 mls/hr IV ASDIR [facility] Last Admin: 06/08/19 05:16 Dose: 100 mls/hr Doxycycline Hyclate 100 mg/ (Dextrose) 100 mls @ 100 mls/hr IVPB BID [facility] Last Admin: 06/08/19 12:07 Dose: 100 mls/hr Methylprednisolone Sodium Succinate (Solu-Medrol -) 40 mg IVPUSH DAILY [facility] Last Admin: 06/08/19 10:12 Dose: 40 mg ASSESSMENT/PLAN: Pt. is a 48 y.o. F w PMHx. HIV (not on HAART), COPD, asthma, and heroin abuse was [facility] after patient desaturated. Patient complains of worsening SOB and cough for 1 week. #Pulmonary RLL PNA Sepsis COPD/Asthma supplental O2 to keep O2 above 90% CXR: shows increasing bibasilar infiltrates with atelectasis c/w Ceftriaxone and Doxycycline c/w Solumedrol 40mg Daily Duonebs PRN CBC in AM, last showed improving Leukocytosis Pt. states that her BP usually runs low, systolic of 90s. Pt. currently asymptomatic. #ID HIV f/u CD4 count ID consult appreciated will restart Triple therapy as per ID will restart prophylactic antibiotics prior to discharge #Substance abuse confirmed Pt. takes 180mg Daily of Methadone with [place] [facility] [place] as per Primary team, Pt.s last dose was 06/06/19 #Hematology Anemia trend CBC can send Iron studies and supplement Iron pending results #Gastroenterology R/O Toxic Megacolon f/u CT Abdomen Pelvis with oral contrast #FEN hold IVF, encourage PO intake monitor electrolytes and replete as needed Regular Diet #DVT Ppx. Hep SQ Dispo: Transfer to Med/ Surg Visit type - Emergency Visit Emergency Visit: Yes ED Registration Date: 06/07/19 Care time: The patient presented to the Emergency Department on the above date and was hospitalized for further evaluation of their emergent condition. - New Patient This patient is new to me today: No - Critical Care Critical Care patient: Yes Total Critical Care Time (in minutes): 45 Critical Care Statement: The care of this patient involved high complexity decision making to prevent further life threatening deterioration of the patient 's condition and/or to evaluate & treat vital organ system(s) failure or risk of failure. ATTENDING PHYSICIAN STATEMENT I saw and evaluated the patient. I reviewed the resident's note and discussed the case with the resident. I agree with the resident's findings and plan as documented. SUBJECTIVE: OBJECTIVE: ASSESSMENT AND PLAN:
--- NOTE | 2019-06-08 13:44 | PN ---
Teaching Attending Note Name of Resident: Danish Recio ATTENDING PHYSICIAN STATEMENT I saw and evaluated the patient. I reviewed the resident's note and discussed the case with the resident. I agree with the resident's findings and plan as documented. SUBJECTIVE: Pt seen and examined in the ICU. Denies shortness of breath. No fevers recorded. States that her BP is normally low. OBJECTIVE: Vital Signs Period Temp Pulse Resp BP Sys/Juárez Pulse Ox Last 24 Hr 97.3 F-97.6 F 45-82 13-22 78-104/46-64 100-100 Intake & Output 06/05/19 06/06/19 06/07/19 06/08/19 23:59 23:59 23:59 23:59 Intake Total 4660 120 Output Total 450 Balance 4210 120 Weight 41.012 kg 43.409 kg 49.5 kg Gen: NAD at rest, cachectic Heart: RRR Lung: decreased breath sounds at the bases Abd: soft, nontender Ext: no edema CBC, BMP 06/08/19 05:42 06/08/19 05:42 Active Medications Albuterol/Ipratropium (Duoneb -) 1 amp NEB Q4H PRN PRN Reason: SHORTNESS OF BREATH Heparin Sodium (Porcine) (Heparin -) 5,000 unit SQ TID [facility] Last Admin: 06/08/19 05:12 Dose: 5,000 unit Ceftriaxone Sodium 2 gm/ (Dextrose) 100 mls @ 100 mls/hr IVPB DAILY [facility]; Protocol Last Admin: 06/08/19 10:12 Dose: 100 mls/hr Dextrose/Sodium Chloride (D5-Ns -) 1,000 mls @ 100 mls/hr IV ASDIR [facility] Last Admin: 06/08/19 05:16 Dose: 100 mls/hr Doxycycline Hyclate 100 mg/ (Dextrose) 100 mls @ 100 mls/hr IVPB BID [facility] Last Admin: 06/08/19 12:07 Dose: 100 mls/hr Methadone HCl (Dolophine -) 120 mg PO DAILY@0600 [facility] Methylprednisolone Sodium Succinate (Solu-Medrol -) 40 mg IVPUSH DAILY [facility] Last Admin: 06/08/19 10:12 Dose: 40 mg ASSESSMENT AND PLAN: Acute Hypoxic Respiratory Failure Pneumonia Sepsis HIV/AIDS Methadone Maintenance Anemia - continue antibiotics per ID - f/u cultures - IVF - monitor urine output, creatinine - O2 to keep SpO2 >90% - on empiric medrol - f/u CD4 count - PO as tolerated - DVT prophylaxis
[2019-06-08] MEDS ORDERED: ALBUTEROL SO4 2.5/IPRATROPIUM 0.5 INH SOL 3 ML VIAL.NEB. NEB PRN (16:24)
--- NOTE | 2019-06-08 17:59 | PN ---
Teaching Attending Note Name of Resident: Caridad Carl ATTENDING PHYSICIAN STATEMENT I saw and evaluated the patient. I reviewed the resident's note and discussed the case with the resident. I agree with the resident's findings and plan as documented. SUBJECTIVE: Patient is feeling better with no acute distress, on oxygen. OBJECTIVE: Vital Signs Temperature 97.3 F L 06/08/19 14:00 Pulse Rate 46 L 06/08/19 14:00 Respiratory Rate 14 06/08/19 14:00 Blood Pressure 94/59 L 06/08/19 14:00 O2 Sat by Pulse Oximetry (%) 100 06/08/19 09:00 GENERAL: The patient is awake, alert, and fully oriented, in no acute distress. HEAD: Normal with no signs of trauma. EYES: PERRL, extraocular movements intact, sclera anicteric, conjunctiva clear. ENT: Ears normal, oropharynx clear without exudates, moist mucous membranes. NECK: Trachea midline, full range of motion, supple. LUNGS: Breath sounds equal, clear to auscultation bilaterally, no wheezes, no crackles, no accessory muscle use. HEART: Regular rate and rhythm, S1, S2 without murmur, rub or gallop. ABDOMEN: Soft, NT,ND,normoactive bowel sounds, no guarding, no rebound, no hepatosplenomegaly, no masses. EXTREMITIES: 2+ pulses, warm, well-perfused, no edema. NEUROLOGICAL: Cranial nerves II through XII grossly intact. Normal speech, gait is stable. PSYCH: Normal mood, normal affect. SKIN: Warm, dry, normal turgor, no rashes or lesions noted CBCD WBC 18.2 K/mm3 (4.0-10.0) H 06/08/19 05:42 RBC 3.59 M/mm3 (3.60-5.2) L 06/08/19 05:42 Hgb 9.7 GM/dL (10.7-15.3) L 06/08/19 05:42 Hct 30.3 % (32.4-45.2) L 06/08/19 05:42 MCV 84.6 fl (80-96) 06/08/19 05:42 MCHC 31.9 g/dl (32.0-36.0) L 06/08/19 05:42 RDW 18.0 % (11.6-15.6) H 06/08/19 05:42 Plt Count 347 K/MM3 (134-434) 06/08/19 05:42 MPV 9.5 fl (7.5-11.1) 06/08/19 05:42 CMP Sodium 137 mmol/L (136-145) 06/08/19 05:42 Potassium 4.0 mmol/L (3.5-5.1) 06/08/19 05:42 Chloride 101 mmol/L (98-107) 06/08/19 05:42 Carbon Dioxide 32 mmol/L (21-32) 06/08/19 05:42 Anion Gap 4 MMOL/L (8-16) L 06/08/19 05:42 BUN 15.2 mg/dL (7-18) 06/08/19 05:42 Creatinine 0.4 mg/dL (0.55-1.3) L 06/08/19 05:42 Random Glucose 176 mg/dL (74-106) H 06/08/19 05:42 Calcium 7.5 mg/dL (8.5-10.1) L 06/08/19 05:42 Total Bilirubin 0.2 mg/dL (0.2-1) 06/08/19 05:42 AST 58 U/L (15-37) H 06/08/19 05:42 ALT 23 U/L (13-61) 06/08/19 05:42 Alkaline Phosphatase 216 U/L (45-117) H 06/08/19 05:42 Total Protein 5.0 g/dl (6.4-8.2) L 06/08/19 05:42 Albumin 1.1 g/dl (3.4-5.0) L 06/08/19 05:42 CARDIAC ENZYMES Troponin I < 0.02 ng/ml (0.00-0.05) 06/06/19 21:30 Current Medications Generic Name Dose Route Start Last Admin Trade Name Freq PRN Reason Stop Dose Admin Albuterol/Ipratropium 1 amp 06/08/19 16:24 Duoneb - NEB Q4H PRN SHORTNESS OF BREATH Heparin Sodium (Porcine) 5,000 unit 06/08/19 22:00 Heparin - SQ TID [facility] Ceftriaxone Sodium 2 gm/ 100 mls @ 100 mls/hr 06/09/19 10:00 Dextrose IVPB DAILY [facility] Protocol Dextrose/Sodium Chloride 1,000 mls @ 100 mls/hr 06/08/19 16:24 D5-Ns - IV ASDIR [facility] Doxycycline Hyclate 100 mg/ 100 mls @ 100 mls/hr 06/08/19 22:00 Dextrose IVPB BID [facility] Methadone HCl 120 mg 06/09/19 06:00 Dolophine - PO DAILY@0600 [facility] Methylprednisolone Sodium Succinate 40 mg 06/09/19 10:00 Solu-Medrol - IVPUSH DAILY [facility] Home Medications Medication Instructions Recorded Darunavir Ethanolate [Prezista -] 800 mg PO DAILY 02/12/16 Emtricitabine/Tenofovir [Truvada] 1 tab PO DAILY 02/12/16 Ritonavir [Norvir -] 100 mg PO DAILY 02/12/16 Microbiology 06/06/19 21:30 Blood - Peripheral Venous Blood Culture - Preliminary NO GROWTH OBTAINED AFTER 72 HOURS, INCUBATION TO CONTINUE FOR 2 DAYS. 06/06/19 21:30 Blood - Peripheral Venous Blood Culture - Preliminary NO GROWTH OBTAINED AFTER 72 HOURS, INCUBATION TO CONTINUE FOR 2 DAYS. 06/07/19 12:50 Sputum - Expectorated Gram Stain - Final 06/07/19 12:50 Sputum - Expectorated Sputum Culture - Final Staphylococcus Aureus Escherichia Coli Esbl Orthopedic Physician 06/06/19 20:55 Urine - Urine Clean Catch Urine Culture - Final NO GROWTH OBTAINED 06/07/19 12:50 Urine For Antigen Detection Legionella Antigen - Final 06/07/19 12:50 Urine For Antigen Detection Streptococcus pneumoniae Antigen (M - Final Laboratory Tests 06/06/19 06/06/19 06/07/19 11:20 11:20 11:20 Absolute CD3 Count 376 L % CD3+ Lymphocytes 62.6 Absolute CD4 [place] 75 L % CD4+ Lymphocyte 12.5 L CD4/CD8 Ratio 0.24 L % CD8+ Lymphocyte 51.4 H Absolute CD8 Count 308 HIV-1 Antibody Positive H HIV Ag/Ab Interpret Hiv-1 positive HIV-1 RNA (PCR) [id number] HIV-1 RNA (PCR) log10 5.148 HIV 1&2 Ag/Ab, 4th Gen Reactive H HIV 1&2 Antibody Screen Beta-(1,3)-D-Glucan 35 06/07/19 11:20 Absolute CD3 Count % CD3+ Lymphocytes Absolute CD4 [place] % CD4+ Lymphocyte CD4/CD8 Ratio % CD8+ Lymphocyte Absolute CD8 Count HIV-1 Antibody HIV Ag/Ab Interpret HIV-1 RNA (PCR) HIV-1 RNA (PCR) log10 HIV 1&2 Ag/Ab, 4th Gen HIV 1&2 Antibody Screen Preliminary positive A Beta-(1,3)-D-Glucan ASSESSMENT AND PLAN: 48 y/o lady with h/o untreated HIV, heroin abuse who presented with cough. She was found to have sepsis due to B/l PNA # Sepsis due to B/l CAP. CT scan reviewed. IVF, continue IV antibiotics, Rocephin # Acute hypoxic resp failure, due to b/l PNA. off Gissell mask , cont O2 through NC # Hypoglycemia : could eb due to sepsis in addition to poor po intake # H/o HIV: not on therapy x 1 year. CD count pending. # Hx of substance abuse on methadone continue DVT PX . increase heparin to TID
[2019-06-08] MEDS ORDERED: DOXYCYCLINE HYCLATE 100 MG VIAL ONE (20:56)
[2019-06-08] MEDS: DOXYCYCLINE INJECTION 100 MG in DEXTROSE 5%-WATER 100 ML IVPB SCH (22:07)
[2019-06-09] MEDS: HEPARIN NA (PORCINE) 5,000 UNITS/ML 1ML VIAL SQ SCH ×3 (05:57→21:00)
[2019-06-09] MEDS ORDERED: METHADONE HCL 10 MG TABLET PO SCH ×2 (06:00→08:43)
--- NOTE | 2019-06-09 06:41 | PN ---
Physical Exam: SUBJECTIVE: Patient seen and examined. She denies chest pain, shortness of breath, cough, abdominal pain, n/v. She reports that she feels well today. OBJECTIVE: Vital Signs Period Temp Pulse Resp BP Sys/Juárez Pulse Ox Last 24 Hr 97.3 F-97.5 F 45-55 14-18 88-104/47-64 100-100 GENERAL: The patient is awake, alert, and fully oriented, in no acute distress. HEAD: Normal with no signs of trauma. EYES: PERRL, extraocular movements intact, conjunctiva clear. ENT: Ears normal, nares patent, dry mucous membranes, tooth loss NECK: Trachea midline, full range of motion, supple. LUNGS: Clear to auscultation bilaterally, no wheezes HEART: Regular rate and rhythm, no murmur. ABDOMEN: Soft, nontender, nondistended, normoactive bowel sounds EXTREMITIES: Warm, well-perfused, no edema. NEUROLOGICAL: Cranial nerves II through XII grossly intact. PSYCH: Normal mood, normal affect. SKIN: Warm, dry Laboratory Results - last 24 hr 06/07/19 06/08/19 06/08/19 11:20 05:42 05:42 WBC 18.2 H RBC 3.59 L Hgb 9.7 L Hct 30.3 L MCV 84.6 MCH 27.0 MCHC 31.9 L RDW 18.0 H Plt Count 347 MPV 9.5 Sodium 137 Potassium 4.0 Chloride 101 Carbon Dioxide 32 Anion Gap 4 L BUN 15.2 Creatinine 0.4 L Est GFR (CKD-EPI)AfAm 140.76 Est GFR (CKD-EPI)NonAf 121.45 Random Glucose 176 H Calcium 7.5 L Phosphorus 3.0 Magnesium 1.7 L Total Bilirubin 0.2 AST 58 H ALT 23 Alkaline Phosphatase 216 H Total Protein 5.0 L Albumin 1.1 L HIV-1 Antibody Positive H HIV Ag/Ab Interpret Hiv-1 positive HIV-2 Antibody Negative HIV 1&2 Ag/Ab, 4th Gen Reactive H Active Medications Generic Name Dose Route Start Last Admin Trade Name Freq PRN Reason Stop Dose Admin Albuterol/Ipratropium 1 amp 06/08/19 16:24 Duoneb - NEB Q4H PRN SHORTNESS OF BREATH Heparin Sodium (Porcine) 5,000 unit 06/08/19 22:00 06/09/19 05:57 Heparin - SQ Not Given TID [facility] Ceftriaxone Sodium 2 gm/ 100 mls @ 100 mls/hr 06/09/19 10:00 Dextrose IVPB DAILY [facility] Protocol Dextrose/Sodium Chloride 1,000 mls @ 100 mls/hr 06/08/19 16:24 06/08/19 22:08 D5-Ns - IV 100 mls/hr ASDIR ANATOLY Administration Doxycycline Hyclate 100 mg/ 100 mls @ 100 mls/hr 06/08/19 22:00 06/08/19 22: 07 Dextrose IVPB 100 mls/hr BID ANAT[facility]Y Administration Methadone HCl 120 mg 06/09/19 06:00 Dolophine - PO DAILY@0600 [facility] Methylprednisolone Sodium Succinate 40 mg 06/09/19 10:00 Solu-Medrol - IVPUSH DAILY [facility] ASSESSMENT/PLAN: Ms. Galvez is a 48y/o female with HIV (not on HAART), COPD, asthma, and heroin use disorder presents with cough for 1 week. CTA showed right-side PNA and pt was admitted. #sepsis 2/2 CAP vs atypical PNA Leukocytosis improving. CTA showed RLL and RML consolidation. Legionella and pneumococcal negative. -sputum cx +staph aureus and e. coli -blood cx pending-prelim negative -doxycycline day 3 (prolonged QTc) -ceftriaxone day 3 -IV bolus PRN hypotension -solumedrol -duo-nebs -ID following #AIDS Not currently on tx last year -CD 4 count 75 -ID following, appreciate recs #transaminitis, improving -trend labs #heroin use disorder -continue methadone tx #r/o toxic megacolon Large colon also found on CTA. Pt non-tender on exam. -CT abdomen/pelvis- pt refused PO contrast -c diff study pending DVT Ppx heparin FEN D5NS 100mL monitor labs sodium controlled diet dispo med/surg Visit type - Emergency Visit Emergency Visit: Yes ED Registration Date: 06/07/19 Care time: The patient presented to the Emergency Department on the above date and was hospitalized for further evaluation of their emergent condition. - New Patient This patient is new to me today: No - Critical Care Critical Care patient: No - Discharge Referral Referred to [facility] No ATTENDING PHYSICIAN STATEMENT I saw and evaluated the patient. I reviewed the resident's note and discussed the case with the resident. I agree with the resident's findings and plan as documented. SUBJECTIVE: OBJECTIVE: ASSESSMENT AND PLAN:
[2019-06-09] MEDS ORDERED: DOXYCYCLINE HYCLATE 100 MG VIAL ONE ×2 (09:10→20:31)
[2019-06-09] MEDS ORDERED: DEXTROSE 5%-WATER 100 ML IVPB ONE ×3 (09:10→20:31)
[2019-06-09] MEDS: methylPREDNISolone NA SUCC 40 MG/1 ML VIAL IVPUSH SCH (09:22)
[2019-06-09] MEDS: DOXYCYCLINE INJECTION 100 MG in DEXTROSE 5%-WATER 100 ML IVPB SCH ×2 (09:22→21:00)
[2019-06-09] MEDS ORDERED: CEFTRIAXONE 2 GM in DEXTROSE 5%-WATER 100 ML IVPB SCH (10:00)
--- NOTE | 2019-06-09 10:12 | PN ---
Progress Note (short form) - Note Progress Note: PULMONARY Denies shortness of breath. +nonproductive cough. No fevers. Vital Signs Period Temp Pulse Resp BP Sys/Juárez Pulse Ox Last 24 Hr 97.3 F-97.6 F 46-55 14-18 94-103/47-59 100 Intake & Output 06/06/19 06/07/19 06/08/19 06/09/19 23:59 23:59 23:59 23:59 Intake Total 4660 2150 1200 Output Total 450 Balance 4210 2150 1200 Weight 41.012 kg 43.409 kg 49.5 kg 47.536 kg Gen: NAD at rest Heart: RRR Lung: right base rales Abd: soft, nontender Ext: no edema CBC, BMP 06/08/19 05:42 06/08/19 05:42 Active Medications Albuterol/Ipratropium (Duoneb -) 1 amp NEB Q4H PRN PRN Reason: SHORTNESS OF BREATH Heparin Sodium (Porcine) (Heparin -) 5,000 unit SQ TID [facility] Last Admin: 06/09/19 05:57 Dose: Not Given Ceftriaxone Sodium 2 gm/ (Dextrose) 100 mls @ 100 mls/hr IVPB DAILY [facility]; Protocol Last Admin: 06/09/19 09:21 Dose: 100 mls/hr Dextrose/Sodium Chloride (D5-Ns -) 1,000 mls @ 100 mls/hr IV ASDIR [facility] Last Admin: 06/08/19 22:08 Dose: 100 mls/hr Doxycycline Hyclate 100 mg/ (Dextrose) 100 mls @ 100 mls/hr IVPB BID [facility] Last Admin: 06/09/19 09:22 Dose: 100 mls/hr Methadone HCl (Dolophine -) 180 mg PO DAILY@0600 [facility] Methylprednisolone Sodium Succinate (Solu-Medrol -) 40 mg IVPUSH DAILY [facility] Last Admin: 06/09/19 09:22 Dose: 40 mg A/P Acute Hypoxic Respiratory Failure Pneumonia Sepsis HIV/AIDS Methadone Maintenance Anemia - continue antibiotics per ID - f/u cultures - IVF - monitor urine output, creatinine - O2 to keep SpO2 >90% - on empiric medrol - f/u CD4 count - PO as tolerated - DVT prophylaxis
[2019-06-09] MEDS ORDERED: PT OWN MED DRAWER 7, Y5N ONE (12:11)
[2019-06-09] MEDS ORDERED: METHADONE HCL 10 MG TABLET ONE (12:22)
[2019-06-09] MEDS ORDERED: METHADONE HCL 40 MG DISPERSABLE TABLET ONE (12:22)
[2019-06-09] MEDS: METHADONE 160 MG, METHADONE 20 MG PO SCH (12:26)
[2019-06-09 13:09] LABS: HEMATOCRIT 35.1 % (32.4-45.2); HEMOGLOBIN 11.2 GM/dL (10.7-15.3); MCH 26.9 pg (25.7-33.7); MEAN CELL VOLUME 83.9 fl (80-96); MEAN PLT VOLUME 9.3 fl (7.5-11.1); PLATELET COUNT 413 K/MM3 (134-434); RBC 4.18 M/mm3 (3.60-5.2); RDW 17.7 % (11.6-15.6); WHITE BLOOD COUNT 14.9 K/mm3 (4.0-10.0)
[2019-06-09 14:48] LABS: ALBUMIN 1.5 g/dl (3.4-5.0); BILIRUBIN,TOTAL 0.2 mg/dL (0.2-1); CALCIUM 8.2 mg/dL (8.5-10.1); CREATININE 0.4 mg/dL (0.55-1.3); POTASSIUM 4.4 mmol/L (3.5-5.1); TOT PROT 6.5 g/dl (6.4-8.2)
--- NOTE | 2019-06-09 18:01 | PN ---
Teaching Attending Note Name of Resident: Caridad Carl ATTENDING PHYSICIAN STATEMENT I saw and evaluated the patient. I reviewed the resident's note and discussed the case with the resident. I agree with the resident's findings and plan as documented. SUBJECTIVE: Patient is feeling better , wants to go home. No nausea and vomiting. no abdominal pain. Vital Signs Temperature 98 F 06/09/19 14:00 Pulse Rate 60 06/09/19 14:00 Respiratory Rate 18 06/09/19 14:00 Blood Pressure 106/60 06/09/19 14:00 O2 Sat by Pulse Oximetry (%) 100 06/08/19 18:42 GENERAL: The patient is awake, alert, and fully oriented, in no acute distress. HEAD: Normal with no signs of trauma. EYES: PERRL, extraocular movements intact, sclera anicteric, conjunctiva clear. ENT: Ears normal, oropharynx clear without exudates, moist mucous membranes. has no teeth or dentures NECK: Trachea midline, full range of motion, supple. LUNGS: Breath sounds equal, clear to auscultation bilaterally, no wheezes, no crackles, no accessory muscle use. HEART: Regular rate and rhythm, S1, S2 without murmur, rub or gallop. ABDOMEN: Soft, NT,ND, normoactive bowel sounds, no guarding, no rebound, no hepatosplenomegaly, no masses. EXTREMITIES: 2+ pulses, warm, well-perfused, no edema. NEUROLOGICAL: Cranial nerves II through XII grossly intact. Normal speech, gait is stable. PSYCH: Normal mood, normal affect. SKIN: Warm, dry, normal turgor, no rashes or lesions noted CBCD WBC 14.9 K/mm3 (4.0-10.0) H 06/09/19 12:23 RBC 4.18 M/mm3 (3.60-5.2) 06/09/19 12:23 Hgb 11.2 GM/dL (10.7-15.3) 06/09/19 12:23 Hct 35.1 % (32.4-45.2) D 06/09/19 12:23 MCV 83.9 fl (80-96) 06/09/19 12:23 MCHC 32.0 g/dl (32.0-36.0) 06/09/19 12:23 RDW 17.7 % (11.6-15.6) H 06/09/19 12:23 Plt Count 413 K/MM3 (134-434) 06/09/19 12:23 MPV 9.3 fl (7.5-11.1) 06/09/19 12:23 CMP Sodium 138 mmol/L (136-145) 06/09/19 12:23 Potassium 4.4 mmol/L (3.5-5.1) 06/09/19 12:23 Chloride 100 mmol/L (98-107) 06/09/19 12:23 Carbon Dioxide 31 mmol/L (21-32) 06/09/19 12:23 Anion Gap 7 MMOL/L (8-16) L 06/09/19 12:23 BUN 10.0 mg/dL (7-18) 06/09/19 12:23 Creatinine 0.4 mg/dL (0.55-1.3) L 06/09/19 12:23 Random Glucose 74 mg/dL (74-106) 06/09/19 12:23 Calcium 8.2 mg/dL (8.5-10.1) L 06/09/19 12:23 Total Bilirubin 0.2 mg/dL (0.2-1) 06/09/19 12:23 AST 64 U/L (15-37) H 06/09/19 12:23 ALT 36 U/L (13-61) 06/09/19 12:23 Alkaline Phosphatase 206 U/L (45-117) H 06/09/19 12:23 Total Protein 6.5 g/dl (6.4-8.2) 06/09/19 12:23 Albumin 1.5 g/dl (3.4-5.0) L 06/09/19 12:23 CARDIAC ENZYMES Troponin I < 0.02 ng/ml (0.00-0.05) 06/06/19 21:30 Current Medications Generic Name Dose Route Start Last Admin Trade Name Freq PRN Reason Stop Dose Admin Albuterol/Ipratropium 1 amp 06/08/19 16:24 Duoneb - NEB Q4H PRN SHORTNESS OF BREATH Heparin Sodium (Porcine) 5,000 unit 06/08/19 22:00 06/09/19 16:04 Heparin - SQ 5,000 unit TID [facility] Administration Ceftriaxone Sodium 2 gm/ 100 mls @ 100 mls/hr 06/09/19 10:00 06/09/19 09:21 Dextrose IVPB 100 mls/hr DAILY [facility] Administration Protocol Dextrose/Sodium Chloride 1,000 mls @ 100 mls/hr 06/08/19 16:24 06/08/19 22:08 D5-Ns - IV 100 mls/hr ASDIR [facility] Administration Doxycycline Hyclate 100 mg/ 100 mls @ 100 mls/hr 06/08/19 22:00 06/09/19 09: 22 Dextrose IVPB 100 mls/hr BID [facility] Administration Methadone HCl 160 mg/ 180 mg 06/09/19 12:00 06/09/19 12:26 Methadone HCl 20 mg PO 180 mg DAILY@0600 [facility] Administration Methylprednisolone Sodium Succinate 40 mg 06/09/19 10:00 06/09/19 09:22 Solu-Medrol - IVPUSH 40 mg DAILY [facility] Administration Home Medications Medication Instructions Recorded Amoxicillin - [Amoxicillin 500mg 500 mg PO TID 06/02/19 Capsule -] Aspirin [Children's Aspirin] 81 mg PO DAILY 06/02/19 Fenofibrate Nanocrystallized 145 mg PO DAILY 06/02/19 [Fenofibrate] Losartan Potassium 50 mg PO DAILY 06/02/19 Lovastatin 20 mg PO DAILY 06/02/19 Paroxetine HCl 40 mg PO DAILY 06/02/19 Zolpidem Tartrate 10 mg PO DAILY 06/02/19 Laboratory Tests 06/06/19 06/06/19 06/07/19 11:20 11:20 11:20 Absolute CD3 Count 376 L % CD3+ Lymphocytes 62.6 Absolute CD4 [place] 75 L % CD4+ Lymphocyte 12.5 L CD4/CD8 Ratio 0.24 L % CD8+ Lymphocyte 51.4 H Absolute CD8 Count 308 HIV-1 Antibody Positive H HIV Ag/Ab Interpret Hiv-1 positive HIV-1 RNA (PCR) [id number] HIV-1 RNA (PCR) log10 5.148 HIV 1&2 Ag/Ab, 4th Gen Reactive H HIV 1&2 Antibody Screen Beta-(1,3)-D-Glucan 35 06/07/19 11:20 Absolute CD3 Count % CD3+ Lymphocytes Absolute CD4 [place] % CD4+ Lymphocyte CD4/CD8 Ratio % CD8+ Lymphocyte Absolute CD8 Count HIV-1 Antibody HIV Ag/Ab Interpret HIV-1 RNA (PCR) HIV-1 RNA (PCR) log10 HIV 1&2 Ag/Ab, 4th Gen HIV 1&2 Antibody Screen Preliminary positive A Beta-(1,3)-D-Glucan Laboratory Tests 06/06/19 06/06/19 06/07/19 11:20 11:20 11:20 Absolute CD3 Count 376 L % CD3+ Lymphocytes 62.6 Absolute CD4 [place] 75 L % CD4+ Lymphocyte 12.5 L CD4/CD8 Ratio 0.24 L % CD8+ Lymphocyte 51.4 H Absolute CD8 Count 308 HIV-1 Antibody Positive H HIV Ag/Ab Interpret Hiv-1 positive HIV-1 RNA (PCR) [id number] HIV-1 RNA (PCR) log10 5.148 HIV 1&2 Ag/Ab, 4th Gen Reactive H HIV 1&2 Antibody Screen Beta-(1,3)-D-Glucan 35 06/07/19 11:20 Absolute CD3 Count % CD3+ Lymphocytes Absolute CD4 [place] % CD4+ Lymphocyte CD4/CD8 Ratio % CD8+ Lymphocyte Absolute CD8 Count HIV-1 Antibody HIV Ag/Ab Interpret HIV-1 RNA (PCR) HIV-1 RNA (PCR) log10 HIV 1&2 Ag/Ab, 4th Gen HIV 1&2 Antibody Screen Preliminary positive A Beta-(1,3)-D-Glucan ASSESSMENT AND PLAN: Patient is a 48 y/o female with PMhx of untreated HIV, heroin abuse who presented with cough. She was found to have sepsis due to B/l PNA # Sepsis due to B/l CAP. CT scan reviewed. IVF, continue IV antibiotics, Rocephin # Acute hypoxic respiratory failure, due to b/l PNA. on 2liter oxygen now , off Venti mask. # s/p Hypoglycemia : improved, patient has poor oral intake # H/o HIV: not on therapy x 1 year. CD count as above , id on the case # Hx of substance abuse on methadone continue DVT PX . heparin sq
--- NOTE | 2019-06-09 18:37 | PN ---
Progress Note, Physician History of Present Illness: AWAKE, RESPONSIVE OFFERS NO COMPLAINTS DENIES CHEST PAIN/ DYPNEA/ COUGH BREATHING NON LABORED ON ROOM AIR AFEBRILE C/S MSSA, ESBL WBC IMPROVED - Current Medication List Current Medications: Active Medications Albuterol/Ipratropium (Duoneb -) 1 amp NEB Q4H PRN PRN Reason: SHORTNESS OF BREATH Heparin Sodium (Porcine) (Heparin -) 5,000 unit SQ TID [facility] Last Admin: 06/09/19 16:04 Dose: 5,000 unit Ceftriaxone Sodium 2 gm/ (Dextrose) 100 mls @ 100 mls/hr IVPB DAILY [facility]; Protocol Last Admin: 06/09/19 09:21 Dose: 100 mls/hr Dextrose/Sodium Chloride (D5-Ns -) 1,000 mls @ 100 mls/hr IV ASDIR [facility] Last Admin: 06/08/19 22:08 Dose: 100 mls/hr Doxycycline Hyclate 100 mg/ (Dextrose) 100 mls @ 100 mls/hr IVPB BID [facility] Last Admin: 06/09/19 09:22 Dose: 100 mls/hr Methadone HCl 160 mg/ (Methadone HCl 20 mg) 180 mg PO DAILY@0600 [facility] Last Admin: 06/09/19 12:26 Dose: 180 mg Methylprednisolone Sodium Succinate (Solu-Medrol -) 40 mg IVPUSH DAILY [facility] Last Admin: 06/09/19 09:22 Dose: 40 mg - Objective Vital Signs: Vital Signs Temperature 98 F 06/09/19 14:00 Pulse Rate 60 06/09/19 14:00 Respiratory Rate 18 06/09/19 14:00 Blood Pressure 106/60 06/09/19 14:00 O2 Sat by Pulse Oximetry (%) 100 06/08/19 18:42 Constitutional: Yes: No Distress, Cachectic Cardiovascular: Yes: Regular Rate and Rhythm, S1, S2 Respiratory: Yes: Rhonchi Gastrointestinal: Yes: Normal Bowel Sounds, Soft. No: Tenderness Edema: No Labs: CBC, BMP 06/09/19 12:23 06/09/19 12:23 INR, PTT INR 1.28 (0.83-1.09) H 06/06/19 21:30 Assessment/Plan [facility] PNEUMONIA COMMUNITY ACQ V. ATYPICAL EXACERBATION COPD LEUKOCYTOSIS IMPROVED HIV/ AIDS CD4 75 SUBSTITUTE AUGMENTIN 875MG PO BID X 10D BACTRIM DS PO TIW FOR PCP PROPHYLAXIS OUTPATIENT REFERRAL TO [facility] FOR ART
[2019-06-09] MEDS: DEXTROSE 5%-NORMAL SALINE 1,000 ML IV SCH ×2 (21:01→22:29)
[2019-06-10] MEDS ORDERED: METHADONE HCL 40 MG DISPERSABLE TABLET ONE (05:22)
[2019-06-10] MEDS ORDERED: METHADONE HCL 10 MG TABLET ONE (05:22)
[2019-06-10] MEDS: METHADONE 160 MG, METHADONE 20 MG PO SCH ×2 (05:39→06:21)
[2019-06-10] MEDS: HEPARIN NA (PORCINE) 5,000 UNITS/ML 1ML VIAL SQ SCH ×2 (05:39→13:57)
[2019-06-10] MEDS ORDERED: AMOX TR/POT CLAV 875MG/125MG TABLETS (FP) PO SCH (08:00)
[2019-06-10] MEDS: methylPREDNISolone NA SUCC 40 MG/1 ML VIAL IVPUSH SCH (09:07)
[2019-06-10 09:22] LABS: ALBUMIN 1.5 g/dl (3.4-5.0); BILIRUBIN,TOTAL 0.3 mg/dL (0.2-1); BLOOD UREA NITROGEN 8.4 mg/dL (7-18); CALCIUM 7.9 mg/dL (8.5-10.1); CREATININE 0.4 mg/dL (0.55-1.3); POTASSIUM 3.5 mmol/L (3.5-5.1)
--- NOTE | 2019-06-10 11:01 | PN ---
Teaching Attending Note Name of Resident: Caridad Carl ATTENDING PHYSICIAN STATEMENT I saw and evaluated the patient. I reviewed the resident's note and discussed the case with the resident. I agree with the resident's findings and plan as documented. SUBJECTIVE: Patient is comfortable with no acute distress. pre and post 02--> 93% and 91% OBJECTIVE: Vital Signs Temperature 98.2 F 06/10/19 06:00 Pulse Rate 54 L 06/10/19 06:00 Respiratory Rate 18 06/10/19 06:00 Blood Pressure 115/53 L 06/10/19 06:00 O2 Sat by Pulse Oximetry (%) 97 06/09/19 21:00 GENERAL: The patient is awake, alert, and fully oriented, in no acute distress. HEAD: Normal with no signs of trauma. EYES: PERRL, extraocular movements intact, sclera anicteric, conjunctiva clear. ENT: Ears normal, oropharynx clear without exudates, moist mucous membranes. NECK: Trachea midline, full range of motion, supple. LUNGS: Breath sounds equal, clear to auscultation bilaterally, no wheezes, no crackles, no accessory muscle use. HEART: Regular rate and rhythm, S1, S2 without murmur, rub or gallop. ABDOMEN: Soft, nontender, nondistended, normoactive bowel sounds, no guarding, no rebound, no hepatosplenomegaly, no masses. EXTREMITIES: 2+ pulses, warm, well-perfused, no edema. NEUROLOGICAL: Cranial nerves II through XII grossly intact. Normal speech, gait not observed. PSYCH: Normal mood, normal affect. SKIN: Warm, dry, normal turgor, no rashes or lesions noted CBCD WBC 14.9 K/mm3 (4.0-10.0) H 06/09/19 12:23 RBC 4.18 M/mm3 (3.60-5.2) 06/09/19 12:23 Hgb 11.2 GM/dL (10.7-15.3) 06/09/19 12:23 Hct 35.1 % (32.4-45.2) D 06/09/19 12:23 MCV 83.9 fl (80-96) 06/09/19 12:23 MCHC 32.0 g/dl (32.0-36.0) 06/09/19 12:23 RDW 17.7 % (11.6-15.6) H 06/09/19 12:23 Plt Count 413 K/MM3 (134-434) 06/09/19 12:23 MPV 9.3 fl (7.5-11.1) 06/09/19 12:23 Sodium 137 mmol/L (136-145) 06/10/19 07:56 Potassium 3.5 mmol/L (3.5-5.1) 06/10/19 07:56 Chloride 99 mmol/L (98-107) 06/10/19 07:56 Carbon Dioxide 33 mmol/L (21-32) H 06/10/19 07:56 Anion Gap 4 MMOL/L (8-16) L 06/10/19 07:56 BUN 8.4 mg/dL (7-18) 06/10/19 07:56 Creatinine 0.4 mg/dL (0.55-1.3) L 06/10/19 07:56 Random Glucose 65 mg/dL (74-106) L 06/10/19 07:56 Calcium 7.9 mg/dL (8.5-10.1) L 06/10/19 07:56 Total Bilirubin 0.3 mg/dL (0.2-1) 06/10/19 07:56 AST 61 U/L (15-37) H 06/10/19 07:56 ALT 38 U/L (13-61) 06/10/19 07:56 Alkaline Phosphatase 170 U/L (45-117) H 06/10/19 07:56 Total Protein 6.0 g/dl (6.4-8.2) L 06/10/19 07:56 Albumin 1.5 g/dl (3.4-5.0) L 06/10/19 07:56 CARDIAC ENZYMES Troponin I < 0.02 ng/ml (0.00-0.05) 06/06/19 21:30 Current Medications Generic Name Dose Route Start Last Admin Trade Name Freq PRN Reason Stop Dose Admin Albuterol/Ipratropium 1 amp 06/08/19 16:24 Duoneb - NEB Q4H PRN SHORTNESS OF BREATH Heparin Sodium (Porcine) 5,000 unit 06/08/19 22:00 06/09/19 16:04 Heparin - SQ 5,000 unit TID [facility] Administration Ceftriaxone Sodium 2 gm/ 100 mls @ 100 mls/hr 06/09/19 10:00 06/09/19 09:21 Dextrose IVPB 100 mls/hr DAILY [facility] Administration Protocol Dextrose/Sodium Chloride 1,000 mls @ 100 mls/hr 06/08/19 16:24 06/08/19 22:08 D5-Ns - IV 100 mls/hr ASDIR [facility]AT[facility]Y Administration Doxycycline Hyclate 100 mg/ 100 mls @ 100 mls/hr 06/08/19 22:00 06/09/19 09: 22 Dextrose IVPB 100 mls/hr BID [facility] Administration Methadone HCl 160 mg/ 180 mg 06/09/19 12:00 06/09/19 12:26 Methadone HCl 20 mg PO 180 mg DAILY@0600 [facility] Administration Methylprednisolone Sodium Succinate 40 mg 06/09/19 10:00 06/09/19 09:22 Solu-Medrol - IVPUSH 40 mg DAILY [facility] Administration Home Medications Medication Instructions Recorded Amoxicillin - [Amoxicillin 500mg 500 mg PO TID 06/02/19 Capsule -] Aspirin [Children's Aspirin] 81 mg PO DAILY 06/02/19 Fenofibrate Nanocrystallized 145 mg PO DAILY 06/02/19 [Fenofibrate] Losartan Potassium 50 mg PO DAILY 06/02/19 Lovastatin 20 mg PO DAILY 06/02/19 Paroxetine HCl 40 mg PO DAILY 06/02/19 Zolpidem Tartrate 10 mg PO DAILY 06/02/19 ASSESSMENT AND PLAN: Patient is a 48 y/o female with PMhx of untreated HIV, heroin abuse who presented with cough and was found to have sepsis due to PNA # s/p sepsis due to CAP. s/p IV Rocephin/doxy, as per ID patient can be discharge home on Augmentin 875mg po bid x 10 days # s/p acute hypoxic respiratory failure, due to b/l PNA. on 2liter oxygen now , off Venti mask, pre and post oxygenation without oxygen 93% and 91%, will discharge patient home without any oxygen since patient is saturating ok. # s/p Hypoglycemia : improved, patient has poor oral intake # H/o HIV: not on therapy x 1 year. CD count as above , id on the case, Bactrim Ds po TIW for PCP px ,OUTPATIENT REFERRAL TO [facility] FOR ART # Hx of substance abuse on methadone continue HIV/ AIDS CD4 75
[2019-06-10 11:47] VITALS: BP 105/58; TEMP 98
[2019-06-10 12:01] LABS: HEMATOCRIT 34.1 % (32.4-45.2); HEMOGLOBIN 10.9 GM/dL (10.7-15.3); MCH 27.2 pg (25.7-33.7); MCHC 32.1 g/dl (32.0-36.0); MEAN CELL VOLUME 84.8 fl (80-96); MEAN PLT VOLUME 9.4 fl (7.5-11.1); PLATELET COUNT 407 K/MM3 (134-434); RBC 4.02 M/mm3 (3.60-5.2); WHITE BLOOD COUNT 11.3 K/mm3 (4.0-10.0)
--- NOTE | 2019-06-10 13:34 | PN ---
Progress Note (short form) - Note Progress Note: PULMONARY Denies shortness of breath. Ambulating in hallway VSS/afebrile Gen: NAD at rest Heart: NSR Clear lung chau Abd: soft, nontender Ext: no edema meds/labs/notes/imges reviewed A/P Acute Hypoxic Respiratory Failure Pneumonia Sepsis HIV/AIDS Methadone Maintenance Anemia - continue antibiotics per ID - f/u cultures - IVF - monitor urine output, creatinine - O2 to keep SpO2 >90% - on empiric medrol - f/u CD4 count - PO as tolerated - DVT prophylaxis Randi DE LA CRUZ MD
--- NOTE | 2019-06-10 17:13 | DS ---
Physical Exam: SUBJECTIVE: Patient seen and examined. She has no complaints at this time. OBJECTIVE: Vital Signs Period Temp Pulse Resp BP Sys/Juárez Pulse Ox Last 24 Hr 98.0 F-98.2 F 54-64 18-20 101-115/53-62 97-100 PHYSICAL EXAM GENERAL: The patient is awake, alert, and fully oriented, in no acute distress. Thin. HEAD: Normal with no signs of trauma. EYES: PERRL, extraocular movements intact, conjunctiva clear. ENT: Ears normal, nares patent, dry mucous membranes, tooth loss NECK: Trachea midline, full range of motion, supple. LUNGS: Clear to auscultation bilaterally, no wheezes HEART: Regular rate and rhythm, no murmur. ABDOMEN: Soft, nontender, nondistended, normoactive bowel sounds EXTREMITIES: Warm, well-perfused, no edema. NEUROLOGICAL: Cranial nerves II through XII grossly intact. PSYCH: Normal mood, normal affect. SKIN: Warm, dry LABS Laboratory Results - last 24 hr 06/06/19 06/07/19 06/10/19 11:20 06:25 07:56 WBC 25.0 H Cancelled Corrected WBC (auto) Cancelled RBC Cancelled Hgb Cancelled Hct Cancelled MCV Cancelled MCH Cancelled MCHC Cancelled RDW Cancelled Plt Count Cancelled MPV Cancelled Absolute Lymphs (auto) 0.6 L Lymphocytes 2 Nucleated RBCs TNP Manual Slide Review Cancelled Platelet Comment Cancelled Sodium Potassium Chloride Carbon Dioxide Anion Gap BUN Creatinine Est GFR (CKD-EPI)AfAm Est GFR (CKD-EPI)NonAf Random Glucose Calcium Total Bilirubin AST ALT Alkaline Phosphatase Total Protein Albumin Absolute CD3 Count 376 L % CD3+ Lymphocytes 62.6 Absolute CD4 Bynum 75 L % CD4+ Lymphocyte 12.5 L CD4/CD8 Ratio 0.24 L % CD8+ Lymphocyte 51.4 H Absolute CD8 Count 308 Pneumocyst carinii Smear Negative 06/10/19 06/10/19 07:56 10:08 WBC 11.3 H Corrected WBC (auto) RBC 4.02 Hgb 10.9 Hct 34.1 MCV 84.8 MCH 27.2 MCHC 32.1 RDW 18.0 H Plt Count 407 MPV 9.4 Absolute Lymphs (auto) Lymphocytes Nucleated RBCs Manual Slide Review Platelet Comment Sodium 137 Potassium 3.5 Chloride 99 Carbon Dioxide 33 H Anion Gap 4 L BUN 8.4 Creatinine 0.4 L Est GFR (CKD-EPI)AfAm 140.76 Est GFR (CKD-EPI)NonAf 121.45 Random Glucose 65 L Calcium 7.9 L Total Bilirubin 0.3 AST 61 H ALT 38 Alkaline Phosphatase 170 H Total Protein 6.0 L Albumin 1.5 L Absolute CD3 Count % CD3+ Lymphocytes Absolute CD4 Bynum % CD4+ Lymphocyte CD4/CD8 Ratio % CD8+ Lymphocyte Absolute CD8 Count Pneumocyst carinii Smear HOSPITAL COURSE: Ms. Galvez is a 48y/o female with AIDS (not on HAART), COPD, asthma, and heroin use disorder who presents with cough for 1 week. CTA showed right-side PNA and pt was admitted for sepsis 2/2 CAP vs atypical PNA. She was initially hypotensive and required fluid bolusing with monitoring in ICU. Sputum cx + staph aureus and ESBL. She received doxy and ceftriaxone as well as solumedrol/ duo-nebs. CD4 count was 75. Pt was discharged with Augmentin and started on ppx Bactrim. Date of Admission:06/07/19 Date of Discharge: 06/10/19 Minutes to complete discharge: 35 Discharge Summary Problems reviewed: Yes Reason For Visit: HYPOXIA,SEPSIS,PNEUMONIA Condition: Stable - Instructions Diet, Activity, Other Instructions: YOUR VISIT: You were admitted to the hospital because you had a cough and were feeling weak. You were diagnosed with a lung infection. You were treated with antibiotic. You are stable to be discharged with antibiotics. You need to follow up at the [facility] to start HIV/AIDS medicine. MEDICATIONS: Continue your methadone as normal. START Augmentin 875mg twice a day for 10 days. START Bactrim 3 times a week until you follow up at the [facility] START Prednisone once a day for 5 days. 06/10/19 40mg 06/11/19 30mg 06/12/19 30mg 06/13/19 20mg 06/14/19 20mg 06/15/19 10mg FOLLOW UP: Dr. Rivera at the [facility], in the next week, to start HIV/AIDS medicine. OTHER INSTRUCTIONS: Return to the emergency room or call 911 if you have chest pain, difficulty breathing, worsening cough, fever above 101, or extreme fatigue/weakness. Referrals: Cathy Newell MD [Staff Physician] - 1 Week (follow up with [facility]) Disposition: HOME - Home Medications Comprehensive Discharge Medication List: Ambulatory Orders Darunavir Ethanolate [Prezista -] 800 mg PO DAILY 02/12/16 Emtricitabine/Tenofovir [Truvada -] 1 tab PO DAILY 02/12/16 Ritonavir [Norvir -] 100 mg PO DAILY 02/12/16 Amox-Tr/K Cl [Augmentin 875-125mg Tablet -] 1 tab PO BID@0800,1730 #20 tablet Prednisone See Taper PO DAILY #18 tablet 06/10/19 Sulfamethoxazole/Trimethoprim [Bactrim Ds -] 1 tab PO ASDIR #14 tablet 06/10/19 This patient is new to me today: Yes Date on this admission: 06/10/19 Emergency Visit: Yes ED Registration Date: 06/07/19 Care time: The patient presented to the Emergency Department on the above date and was hospitalized for further evaluation of their emergent condition. Critical Care patient: No - Discharge Referral Referred to [facility] No ATTENDING PHYSICIAN STATEMENT I saw and evaluated the patient. I reviewed the resident's note and discussed the case with the resident. I agree with the resident's findings and plan as documented. SUBJECTIVE: OBJECTIVE: ASSESSMENT AND PLAN:
[2019-06-10 17:16] VITALS: PULSE 71
== END 2019-06-10 15:13 | disposition home or self-care (01) | DRG 890 ==
LOC: JER 20:20 → JERBED 06-07 01:07 → J8W 06-07 08:35 → JERBED 06-07 09:20 → JICU 06-07 09:22 → J8W 06-08 15:56 → JERBED 06-09 13:13 → J8W 06-09 13:14
PROVIDERS: ADMIT Internal Medicine; ATTEND Internal Medicine
DX: A41.01 Sepsis due to Methicillin susceptible Staphylococcus aureus (principal); R00.0 Tachycardia, unspecified; R64 Cachexia; Z68.20 Body mass index [BMI] 20.0-20.9, adult; F17.210 Nicotine dependence, cigarettes, uncomplicated; D72.829 Elevated white blood cell count, unspecified; F14.20 Cocaine dependence, uncomplicated; J96.01 Acute respiratory failure with hypoxia; J15.211 Pneumonia due to Methicillin susceptible Staphylococcus aureus; B20 Human immunodeficiency virus [HIV] disease; I95.9 Hypotension, unspecified; J44.1 Chronic obstructive pulmonary disease with (acute) exacerbation; E16.2 Hypoglycemia, unspecified; E86.0 Dehydration; R14.0 Abdominal distension (gaseous); R91.1 Solitary pulmonary nodule; F11.20 Opioid dependence, uncomplicated; D64.9 Anemia, unspecified; R06.02 Shortness of breath; J45.909 Unspecified asthma, uncomplicated; R94.31 Abnormal electrocardiogram [ECG] [EKG]; K59.39 Other megacolon; Z91.14 Patient's other noncompliance with medication regimen
CPT/HCPCS: 36415; 36600; 71045-TC-FY; 71046-TC-FY; 71275-TC; 74176-TC; 80053; 80307; 81003; 82375; 82803; 83050; 83605; 83615; 83735; 84100; 84443; 84484; 84703; 85025; 85027; 85610; 85730; 86359; 86360; 87040; 87070; 87086; 87186; 87205; 87281; 87389; 87449; 87536; 87899; 93005; 93010; 94010; 94761; 97116-GP; 97161-GP; 99283-25; J0131; J1644; J7030